=== PATIENT | female | born 1965 | race Caucasian/White ===

== ENCOUNTER 2017-11-24 17:22 | Emergency (ER) | payer MEDICARE ==
[~2017-11-24] VITALS: Ht 170.2 cm; Wt 95.7 kg
[~2017-11-24 17:22] MED LIST: GABA-549 PO; MECL25TA9 PO; MONT10TA PO; NITR-57 PO; ONDA4TAB PO; OXYC-865 PO; PARO-243 PO; PROM-110 PO; PROM5SYR PO; RANI-324 PO; ROPI1TAB36 PO; TOPI-23 PO; TOPI50TA92 PO
--- NOTE | 2017-11-24 18:00 | ER Report ---
History and Physical Time Seen By MD: 17:59 Hx. of Stated Complaint: pt reports pain in chest starting last night, and pain in stomach like a band across stomach, nausea and dizziness HPI/ROS CHIEF COMPLAINT: Chest pain, stomach pain, headache HISTORY OF PRESENT ILLNESS: 52-year-old female patient persists to emergency room with complaint stomach pain, chest pain and headache. Patient states that this started last night with the chest and abdominal pain. She states that today she tried drinking a soda but states that it "didn't taste right" so she thought she needed to come and be evaluated. She states that she went to urgent care, they attempted to get blood there but were unsuccessful and she was referred here to the emergency room. Patient states she does have a history of hypokalemia. Patient had improvement of her symptoms with Zofran and GI cocktail. That is according to the report I received from the urgent care. Patient was referred to emergency room as they were unable to check her labs. REVIEW OF SYSTEMS: Respiratory: No cough, no dyspnea. Cardiovascular: As noted above Gastrointestinal: As noted above Musculoskeletal: No back pain. Allergies: Coded Allergies: metronidazole (Verified Allergy, Unknown, 11/07/17) sulfamethoxazole (Verified Allergy, Unknown, 11/07/17) trimethoprim (Verified Allergy, Unknown, 11/07/17) Home Meds Active Scripts Promethazine Hcl (PROMETHAZINE HCL) 25 Mg Tablet, 25 MG PO Q8H Y for NAUSEA, # 20 TAB 0 Refills Prov:KENJI GREENBERG MD 11/07/17 Meclizine Hcl (MECLIZINE HCL) 25 Mg Tablet, 25 MG PO TID, #20 TAB Prov:ADDIS MCWILLIAMS PA-C 09/27/17 Reported Medications Topiramate (TOPIRAMATE) 25 Mg Tablet, 25 MG PO QHS 08/20/17 Topiramate (TOPIRAMATE) 50 Mg Tablet, 50 MG PO QAM 08/20/17 Gabapentin (GABAPENTIN) 300 Mg Capsule, 300 MG PO TID, CAPSULE 08/20/17 Paroxetine Hcl (PAXIL) 20 Mg Tablet, 40 MG PO QDAY, TAB 08/20/17 Ropinirole Hcl (ROPINIROLE HCL) 1 Mg Tablet, 1 MG PO QHS 08/20/17 Meclizine Hcl (MECLIZINE HCL) 25 Mg Tablet, 25 MG PO TID Y for DIZZINESS 08/20/17 Discontinued Reported Medications Ranitidine Hcl (ZANTAC) 150 Mg Tablet, 150 MG PO BID, TAB 08/20/17 Nitrofurantoin Monohyd/M-Cryst (NITROFURANTOIN MONO-MCR 100 MG) 100 Mg Capsule, 100 MG PO QDAY, CAPSULE 08/20/17 Past Medical/Surgical History Patient has a past medical history of restless leg, migraines, heart murmur, asthma, reflux, UTI, fibromyalgia, fractures, diabetes, depression, anxiety. Patient has a past surgical history cholecystectomy, hysterectomy, knee surgery , foot surgery, back surgery, wrist surgery. Reviewed Nurses Notes: Yes Hx Smoking: Yes Hx Substance Use Disorder: No Hx Alcohol Use: No Constitutional Vital Sign - Last 24 Hours 11/24/17 11/24/17 11/24/17 11/24/17 17:22 17:32 17:33 17:37 Temp 98.4 Pulse ??? 83 79 Resp 16 15 B/P (MAP) 135/80 135/80 (98) Pulse Ox 96 96 O2 Delivery Room Air 11/24/17 11/24/17 11/24/17 11/24/17 17:52 18:00 18:07 18:22 Pulse 74 72 80 Resp 11 8 24 B/P (MAP) 119/76 (90) Pulse Ox 97 96 11/24/17 11/24/17 11/24/17 11/24/17 18:30 18:37 18:52 19:07 Pulse 84 79 ??? Resp 8 21 B/P (MAP) ???/??? (1665) 11/24/17 11/24/17 11/24/17 11/24/17 19:12 19:27 19:30 19:42 Pulse 67 73 68 Resp 15 16 14 B/P (MAP) ???/??? (1665) 11/24/17 11/24/17 11/24/17 11/24/17 19:46 19:57 20:00 20:12 Pulse 66 76 Resp 14 11 B/P (MAP) 122/78 (93) 110/65 (80) 11/24/17 11/24/17 11/24/17 11/24/17 20:27 20:30 20:42 20:57 Pulse 64 66 ??? Resp 15 13 B/P (MAP) 119/64 (82) Intake and Output 11/24/17 11/24/17 11/25/17 15:00 23:00 07:00 Intake Total 400 ml Balance 400 ml Physical Exam General Appearance: The patient is alert, has no immediate need for airway protection and no current signs of toxicity. Respiratory: Chest is non tender, lungs are clear to auscultation. Cardiac: regular rate and rhythm Gastrointestinal: Abdomen is soft and diffusely tender, no masses, bowel sounds normal. Musculoskeletal: Neck: Neck is supple and non tender. Extremities have full range of motion and are non tender. Skin: No rashes or lesions. DIFFERENTIAL DIAGNOSIS: After history and physical exam differential diagnosis was considered for chest pain including but not limited to myocardial ischemia, pericarditis pulmonary embolus, chest wall pain, pleural inflammation and pulmonary infectious causes. Included differential is migraine, diverticulitis, appendicitis, gastroenteritis. Medical Decision Making Data Points Result Diagram: 11/24/17193811/24/171938 Laboratory Hematology Test 11/24/17 17:32 11/24/17 19:39 Urine Color Yellow Urine Clarity Slightly-cloudy Urine pH 5.0 pH (4.8-9.5) Urine Specific [place] 1.021 Urine Protein Negative mg/dL (NEGATIVE) Urine Glucose (UA) Negative mg/dL (NEGATIVE) Urine Ketones Negative mg/dL (NEGATIVE) Urine Blood Small (NEGATIVE) Urine Nitrite Negative (NEGATIVE) Urine Bilirubin Negative (NEGATIVE) Urine Urobilinogen Negative mg/dL (0.2-1.9) Urine Leukocyte Esterase Negative (NEGATIVE) Urine RBC <1 /HPF (0-2/HPF) Urine WBC 2 /HPF (0-5/HPF) Urine Squamous Epithelial Cells Many /LPF (</=FEW) Urine Bacteria Few /HPF (NONE-FEW) Urine Mucus Few /HPF (NONE-FEW) Red Blood Count 5.56 M/uL (4.17-5.56) Mean Corpuscular Volume 76.5 fL (80.0-96.0) Mean Corpuscular Hemoglobin 24.5 pg (26.0-33.0) Mean Corpuscular Hemoglobin Concent 32.0 g/dL (32.0-36.0) Red Cell Distribution Width 16.5 % (11.5-14.5) Mean Platelet Volume 8.5 fL (7.2-11.1) Neutrophils (%) (Auto) 58.6 % (39.4-72.5) Lymphocytes (%) (Auto) 33.1 % (17.6-49.6) Monocytes (%) (Auto) 7.1 % (4.1-12.4) Eosinophils (%) (Auto) 0.7 % (0.4-6.7) Basophils (%) (Auto) 0.5 % (0.3-1.4) Nucleated RBC Relative Count (auto) 0.0 /100WBC Neutrophils # (Auto) 3.5 K/uL (2.0-7.4) Lymphocytes # (Auto) 2.0 K/uL (1.3-3.6) Monocytes # (Auto) 0.4 K/uL (0.3-1.0) Eosinophils # (Auto) 0.0 K/uL (0.0-0.5) Basophils # (Auto) 0.0 K/uL (0.0-0.1) Nucleated RBC Absolute Count (auto) 0.00 K/uL Sodium Level 137 mmol/L (137-145) Potassium Level 3.9 mmol/L (3.5-5.0) Chloride Level 105 mmol/L (98-107) Carbon Dioxide Level 24 mmol/L (22-31) Blood Urea Nitrogen 10 mg/dl (7-18) Creatinine 0.90 mg/dl (0.52-1.04) Glomerular Filtration Rate Calc > 60.0 Random Glucose 100 mg/dl (75-110) Calcium Level 9.0 mg/dl (8.4-10.2) Total Bilirubin 0.7 mg/dl (0.2-1.3) Aspartate Amino Transf (AST/SGOT) 16 U/L (0-35) Alanine Aminotransferase (ALT/SGPT) 28 U/L (0-56) Alkaline Phosphatase 72 U/L (0-126) Troponin I < 0.012 ng/ml Total Protein 7.1 gm/dl (6.3-8.2) Albumin 3.8 g/dl (3.5-5.0) Chemistry Test 11/24/17 17:32 11/24/17 19:39 Urine Color Yellow Urine Clarity Slightly-cloudy Urine pH 5.0 pH (4.8-9.5) Urine Specific [place] 1.021 Urine Protein Negative mg/dL (NEGATIVE) Urine Glucose (UA) Negative mg/dL (NEGATIVE) Urine Ketones Negative mg/dL (NEGATIVE) Urine Blood Small (NEGATIVE) Urine Nitrite Negative (NEGATIVE) Urine Bilirubin Negative (NEGATIVE) Urine Urobilinogen Negative mg/dL (0.2-1.9) Urine Leukocyte Esterase Negative (NEGATIVE) Urine RBC <1 /HPF (0-2/HPF) Urine WBC 2 /HPF (0-5/HPF) Urine Squamous Epithelial Cells Many /LPF (</=FEW) Urine Bacteria Few /HPF (NONE-FEW) Urine Mucus Few /HPF (NONE-FEW) White Blood Count 6.1 k/uL (4.5-11.0) Red Blood Count 5.56 M/uL (4.17-5.56) Hemoglobin 13.6 g/dL (12.0-16.0) Hematocrit 42.5 % (34.0-47.0) Mean Corpuscular Volume 76.5 fL (80.0-96.0) Mean Corpuscular Hemoglobin 24.5 pg (26.0-33.0) Mean Corpuscular Hemoglobin Concent 32.0 g/dL (32.0-36.0) Red Cell Distribution Width 16.5 % (11.5-14.5) Platelet Count 165 K/uL (150-450) Mean Platelet Volume 8.5 fL (7.2-11.1) Neutrophils (%) (Auto) 58.6 % (39.4-72.5) Lymphocytes (%) (Auto) 33.1 % (17.6-49.6) Monocytes (%) (Auto) 7.1 % (4.1-12.4) Eosinophils (%) (Auto) 0.7 % (0.4-6.7) Basophils (%) (Auto) 0.5 % (0.3-1.4) Nucleated RBC Relative Count (auto) 0.0 /100WBC Neutrophils # (Auto) 3.5 K/uL (2.0-7.4) Lymphocytes # (Auto) 2.0 K/uL (1.3-3.6) Monocytes # (Auto) 0.4 K/uL (0.3-1.0) Eosinophils # (Auto) 0.0 K/uL (0.0-0.5) Basophils # (Auto) 0.0 K/uL (0.0-0.1) Nucleated RBC Absolute Count (auto) 0.00 K/uL Glomerular Filtration Rate Calc > 60.0 Calcium Level 9.0 mg/dl (8.4-10.2) Total Bilirubin 0.7 mg/dl (0.2-1.3) Aspartate Amino Transf (AST/SGOT) 16 U/L (0-35) Alanine Aminotransferase (ALT/SGPT) 28 U/L (0-56) Alkaline Phosphatase 72 U/L (0-126) Troponin I < 0.012 ng/ml Total Protein 7.1 gm/dl (6.3-8.2) Albumin 3.8 g/dl (3.5-5.0) Urinalysis Test 11/24/17 17:32 Urine Color Yellow Urine Clarity Slightly-cloudy Urine pH 5.0 pH (4.8-9.5) Urine Specific [place] 1.021 Urine Protein Negative mg/dL (NEGATIVE) Urine Glucose (UA) Negative mg/dL (NEGATIVE) Urine Ketones Negative mg/dL (NEGATIVE) Urine Blood Small (NEGATIVE) Urine Nitrite Negative (NEGATIVE) Urine Bilirubin Negative (NEGATIVE) Urine Urobilinogen Negative mg/dL (0.2-1.9) Urine Leukocyte Esterase Negative (NEGATIVE) Urine RBC <1 /HPF (0-2/HPF) Urine WBC 2 /HPF (0-5/HPF) Urine Squamous Epithelial Cells Many /LPF (</=FEW) Urine Bacteria Few /HPF (NONE-FEW) Urine Mucus Few /HPF (NONE-FEW) EKG/Imaging EKG Interpretation 12 lead EKG: Rhythm: normal sinus rhythm with a ventricular rate of 75 bpm Gardner: normal QRS: normal ST segments: normal Imaging Technique: CHEST PA AND LAT HISTORY: Chest pain COMPARISON: Chest radiograph November 07, 2017 Findings: The lungs are clear. No pleural effusion or pneumothorax. The cardiomediastinal silhouette is normal. Impression: 1. No acute cardiopulmonary process. Report Dictated By: Delroy Alvares DO at 11/24/2017 7:18 PM Report E-Signed By: Delroy Alvares DO at 11/24/2017 7:20 PM ED Course/Re-evaluation ED Course Patient was admitted to exam room, history of physical or obtained. Differential diagnoses were considered. On examination lungs are clear, heart is regular, abdomen was soft but a few slightly tender. A CBC, CMP, EKG, chest x -ray, troponin, urinalysis were obtained. The lab work was unremarkable, patient has a history of hypokalemia. Her potassium today was 3.9. Urinalysis was also negative. Chest x-ray showed no acute findings. Troponin was negative. I discussed the findings with the patient. Patient received 700 cc of fluid. Patient states that she did have improvement at the urgent care with GI cocktail and Zofran. We will go ahead and discharge patient home with Zofran as well as having her increase her Nexium twice daily. Patient was given a dose of Protonix here in the emergency room. I believe the cause of her discomfort is actually gastritis. Discusses patient who verbalized understanding and agreement Decision to Disposition Date: Nov 24, 2017 Decision to Disposition Time: 20:38 Depart Departure Latest Vital Signs Vital Signs Date Time Temp Pulse Resp B/P (MAP) Pulse Ox O2 Delivery O2 Flow Rate FiO2 11/24/17 20:57 ??? 11/24/17 20:42 13 11/24/17 20:30 119/64 (82) 11/24/17 18:07 96 11/24/17 17:32 98.4 Room Air Impression: Primary Impression: Chest pain Additional Impression: Gastritis Condition: Improved Disposition: HOME OR SELF-CARE Referrals: FAVIOLA APPIAH (PCP) New Scripts Ondansetron (ZOFRAN ODT) 4 Mg Tab.rapdis 4 MG PO Q6H Y for NAUSEA/VOMITING, #20 TAB.TIERRA Prov: HIGINIO COBB 11/24/17 Patient Instructions: Gastritis (ED) Additional Instructions: Increase fluid intake. Clear liquid diet for the next 24-48 hours. After that you may advance diet as tolerated starting with complex carbohydrates ; rice, bread or pasta. Follow up with your primary care provider in the next week. Return to the ER if condition worsens. Please increase your Nexium to twice a day for the next 4-5 days. Problem Qualifiers Primary Impression: Chest pain Chest pain type: other chest pain Qualified Codes: R07.89 - Other chest pain Additional Impression: Gastritis Gastritis type: unspecified gastritis Chronicity: acute Gastritis bleeding : without bleeding Qualified Codes: K29.00 - Acute gastritis without bleeding HIGINIO COBB Nov 24, 2017 18:00
[2017-11-24] MEDS ORDERED: ASPIRIN 81 MG CHEW PO ONE (18:10)
[2017-11-24] MEDS ORDERED: NS(*) 0.9% 1000 ML BAG 1,000 ML IV ONE (18:10)
--- NOTE | 2017-11-24 19:18 | EKG ---
FACILITY: PATIENT NAME: MAHESH QUISPE : [id number] MR: [id number] V: [id number] EXAM DATE: ORDERING PHYSICIAN: HIGINIO COBB TECHNOLOGIST: FRANNY Crowder Reason : CP Blood Pressure : / mmHG Vent. Rate : 075 BPM Atrial Rate : 075 BPM P-R Int : 128 ms QRS Dur : 086 ms QT Int : 404 ms P-R-T Axes : 042 043 046 degrees QTc Int : 451 ms Normal sinus rhythm Normal ECG Relatively unchanged from previous Confirmed by LANDY HOUSER ([id number]) on 11/25/2017 2:00:53 AM Referred By: FOX Confirmed By:LANDY HOUSER
--- NOTE | 2017-11-24 19:24 | RADIOLOGY IMAGING REPORT ---
FACILITY: [facility] PATIENT NAME: Francheska Anderson : 1965 MR: [id number] V: [id number] EXAM DATE: ORDERING PHYSICIAN: HIGINIO COBB TECHNOLOGIST: Location[place] [facility] [place] Patient: Francheska Anderson : 1965 Visit/Account:[id number] Date of Sevice: 11/24/2017 Technique: CHEST PA AND LAT HISTORY: Chest pain COMPARISON: Chest radiograph November 07, 2017 Findings: The lungs are clear. No pleural effusion or pneumothorax. The cardiomediastinal silhouett e is normal. Impression: 1. No acute cardiopulmonary process. Report Dictated By: Delroy Alvares DO at 11/24/2017 7:18 PM Report E-Signed By: Delroy Alvares DO at 11/24/2017 7:20 PM WSN:[id number]
[2017-11-24 19:48] LABS: PLATELET COUNT, AUTOMATED 165 K/uL (150-450)
[2017-11-24 20:30] VITALS: BP 119/64
[2017-11-24] MEDS ORDERED: ONDANSETRON 4 MG ODT TH SL ONE (20:40)
[2017-11-24] MEDS ORDERED: PANTOPRAZOLE SOD 40 MG TABEC PO ONE (20:40)
[2017-11-24] MEDS ORDERED: ONDA4TAB PO (22:18)
== END 2017-11-24 21:00 | disposition home or self-care (01) ==
LOC: ER 17:50
DX: K29.00 Acute gastritis without bleeding (principal); R07.89 Other chest pain
CPT/HCPCS: 71046; 81001; 84484; 85025; 93005; 96360; 96361; 99284; A9270; J7030; Q0162; 82040; 82247; 82310; 82374; 82435; 82565; 82947; 84075; 84132; 84155; 84295; 84450; 84460; 84520; S0119

== ENCOUNTER → 2017-12-09 | Outpatient (CLI) | payer MEDICARE ==
[~2017-12-09] MED LIST changes: +BARIUM SULFATE 176 GM BTL PO ONE; +BARIUM SULFATE 340 GM POWD ONE
--- NOTE | 2017-12-09 16:59 | RADIOLOGY IMAGING REPORT ---
FACILITY: [facility] PATIENT NAME: Francheska Anderson : 1965 MR: [id number] V: [id number] EXAM DATE: ORDERING PHYSICIAN: LISA BRADFORD TECHNOLOGIST: Location: [facility] - [place] Patient: Francheska Anderson : 1965 Visit/Account:[id number] Date of Sevice: 12/09/2017 Exam type: ESOPHAGRAM History: dysphagia, possible history of zenkers Comparison: None. Findings: Double contrast esophagram was performed with thick and thin barium. There is a Zenker's diverticulu m in the cervical esophagus measuring approximately 4 x 7 mm. There is a small hiatal hernia present with a large amount of gastroesophageal reflux. No significant narrowing was identified in the dist al esophagus no mucosal erosions were seen the fluoroscopy dose area product was 139.18 micro-Aguilar pe r meter squared IMPRESSION: 1. A Zenker's diverticulum Small hiatal hernia with a large amount of gastroesophageal reflux although no significant esophageal narrowing or mucosal erosion Report Dictated By: Genna [place] MD at 12/09/2017 4:50 PM Report E-Signed By: Genna [place] MD at 12/09/2017 4:53 PM WSN:[email or web address] [id number]
== END ==
LOC: RAD 01:18
PROVIDERS: ATTEND Otolaryngology
DX: K22.5 Diverticulum of esophagus, acquired (principal); K44.9 Diaphragmatic hernia without obstruction or gangrene; K21.9 Gastro-esophageal reflux disease without esophagitis
CPT/HCPCS: 74220

== ENCOUNTER → 2017-12-09 | Outpatient (CLI) | payer MEDICARE ==
[~2017-12-09] MED LIST changes: -BARIUM SULFATE 176 GM BTL PO ONE; -BARIUM SULFATE 340 GM POWD ONE
--- NOTE | 2017-12-10 09:54 | RADIOLOGY IMAGING REPORT ---
FACILITY: [facility] PATIENT NAME: MAHESH QUISPE : [id number] MR: [id number] V: [id number] EXAM DATE: ORDERING PHYSICIAN: NATALYA FOWLER TECHNOLOGIST: Avis Ferreira EXAMINATION:TWO-DIMENSIONAL ECHOCARDIOGRAPH REASON:SHORTNESS OF BREATH WITH EXERTION AND HEART MURMUR. 2D Measurements (normal values in centimeters) LV endLV endRV endVent.LV PostAorticLeftPercent DiastolicSystolicDiastolicSeptumWallRootAtriumShortening (3.5-5.7)(0.9-2.6)(0.6-1.1)(0.6-1.1)(2.0-3.7)(1.9-4.0)(25-35%) [id number]% STROKE VOLUME: 52 mL ESTIMATED EJECTION FRACTION:56% PARASTERNAL LONG AXIS: Overall left ventricular function and chamber sizes all appear to be normal. Aortic valve and mitral valve both appear to open and close normally. No wall motion abnormalities are noted. Color examination of the valves in this view was unremarkable. The right ventricle appears to be somewhat decreased in function. The TAPSE was measured at 1.2 indicating moderate decrease in right ventricular function. PARASTERNAL SHORT AXIS: Pulmonic valve is well seen. There is a mild amount of pulmonic insufficiency. Trileaflet aortic valve with no abnormalities noted. Trace of tricuspid insufficiency is noted. Left ventricular function appears to be normal. No specific wall motion abnormalities were noted. APICAL FOUR AND TWO CHAMBER: Normal chamber sizes. Prominent moderator bands noted in the right ventricle. Aortic valve area and mitral valve area both measure within normal range at 2.6 and 3.3 cm2 respectively. Left atrial and right atrial volumes measure within normal range at 15 and 10 mL/m2. Tricuspid regurgitation V-max is measured at 1.78 m/sec. SUBCOSTAL VIEW: It was difficult but no pericardial effusion was noted. Doppler examination of the mitral valve in diastole does reveal E to A wave reversal. OVERALL IMPRESSION: 1. Normal left ventricular ejection fraction of 56% with a grade 1/4 decrease in diastolic function. 2. There are normal chamber sizes. 3. No wall motion abnormalities are noted. 4. Aortic valve is trileaflet in configuration and appears to open normally. No stenosis is noted. 5. There is a trace amount of tricuspid insufficiency with estimated right ventricular systolic pressure within normal range at 16 mmHg. 6. A mild amount of pulmonic insufficiency. 7. Possible decrease in right ventricular function, moderate, with the TAPSE measuring 1.2 indicating moderate decrease in right ventricular function. Dictated by: Wilberto Krause M.D. on 12/09/2017 at 21:19 Transcribed by: FRANKIE on 12/09/2017 at 22:34 Approved by: Wilberto Krause M.D. on 12/10/2017 at 9:53 [facility]
== END ==
LOC: US 12-03 00:33
PROVIDERS: ATTEND Internal Medicine Cardiovascular Disease
DX: I07.1 Rheumatic tricuspid insufficiency (principal); I37.1 Nonrheumatic pulmonary valve insufficiency; I50.30 Unspecified diastolic (congestive) heart failure
CPT/HCPCS: 93306

== ENCOUNTER 2018-01-10 01:10 | Emergency (ER) | payer MEDICARE, MEDICAID ==
[~2018-01-10] VITALS: Ht 170.2 cm; Wt 94.8 kg
[~2018-01-10 01:10] MED LIST changes: -FLUC150T40 PO
[2018-01-10] MEDS ORDERED: NS(*) 0.9% 1000 ML BAG 1,000 ML IV ONE (01:20)
[2018-01-10] MEDS ORDERED: ONDANSETRON 4 MG/2 ML VIAL IVP ONE ×2 (01:20→03:50)
--- NOTE | 2018-01-10 01:21 | ER Report ---
History and Physical Time Seen By MD: 01:15 Hx. of Stated Complaint: PT REPORTS NAUSEA, VOMITING AND DIZZINESS TONIGHT. VS SIGNS ABSOLUTELY NORMAL. HPI/ROS CHIEF COMPLAINT: Nausea, vomiting, dizziness, syncope HISTORY OF PRESENT ILLNESS: This is a 53-year-old female. She has had ongoing problems with dizziness and syncope for some time and has a workup that is ongoing. Tonight she was having some nausea, vomiting, and felt dizzy again. She ended up having a syncopal episode. She passed out. She has a headache, denies vision changes. No neck or back pain. No injury to the extremities. She did have recent wrist surgery on her right wrist for removal of hardware, and that seems to be doing well. She denies any fevers or chills. No chest pains. No shortness of breath. No abdominal pain. Allergies: Coded Allergies: metronidazole (Verified Allergy, Unknown, 01/10/18) sulfamethoxazole (Verified Allergy, Unknown, 01/10/18) trimethoprim (Verified Allergy, Unknown, 01/10/18) Home Meds Active Scripts Promethazine Hcl (PROMETHAZINE HCL) 25 Mg Tablet, 25 MG PO Q8H Y for NAUSEA/ VOMITING, #20 TAB 0 Refills Prov:CHRIS MERRITT MD 01/10/18 Ondansetron (ZOFRAN ODT) 4 Mg Tab.rapdis, 4 MG PO Q6H Y for NAUSEA/VOMITING, # 20 TAB.TIERRA Prov:HIGINIO COBBP 11/24/17 Promethazine Hcl (PROMETHAZINE HCL) 25 Mg Tablet, 25 MG PO Q8H Y for NAUSEA, # 20 TAB 0 Refills Prov:KENJI GREENBERG MD 11/07/17 Reported Medications Topiramate (TOPIRAMATE) 25 Mg Tablet, 25 MG PO QHS 08/20/17 Topiramate (TOPIRAMATE) 50 Mg Tablet, 50 MG PO QAM 08/20/17 Gabapentin (GABAPENTIN) 300 Mg Capsule, 300 MG PO TID, CAPSULE 08/20/17 Paroxetine Hcl (PAXIL) 20 Mg Tablet, 40 MG PO QDAY, TAB 08/20/17 Ropinirole Hcl (ROPINIROLE HCL) 1 Mg Tablet, 1 MG PO QHS 08/20/17 Meclizine Hcl (MECLIZINE HCL) 25 Mg Tablet, 25 MG PO TID Y for DIZZINESS 08/20/17 Discontinued Scripts Meclizine Hcl (MECLIZINE HCL) 25 Mg Tablet, 25 MG PO TID, #20 TAB Prov:POPPYADDIS Whitehead PA-C 09/27/17 Reviewed Nurses Notes: Yes Hx Smoking: Yes Smoking Status: Never Smoker Hx Substance Use Disorder: No Hx Alcohol Use: No Constitutional Vital Sign - Last 24 Hours 01/10/18 01/10/18 01/10/18 01/10/18 01:03 01:15 01:30 01:45 Temp 98.0 Pulse 81 77 74 75 Resp 14 B/P (MAP) 98/78 (85) Pulse Ox 93 92 90 O2 Delivery Room Air 01/10/18 01/10/18 01/10/18 01/10/18 02:00 02:01 02:15 02:45 Pulse ??? 72 B/P (MAP) 114/68 (83) Pulse Ox 92 92 93 01/10/18 01/10/18 01/10/18 01/10/18 03:15 03:30 03:45 04:00 Pulse 69 68 75 B/P (MAP) 108/75 (86) Pulse Ox 92 92 93 01/10/18 04:32 Pulse 86 Resp 14 B/P (MAP) 118/80 (93) Pulse Ox 92 O2 Delivery Room Air Physical Exam General Appearance: The patient is alert. No acute distress. Eyes: Pupils are equal, round. Reactive to light. No pallor, injection or icterus. Extraocular movements are intact. No nystagmus. ENT: Mucous membranes are moist. Normal oral mucosa. Posterior oropharynx is normal. Normal tympanic membranes and canals. Neck: Supple and non tender. No lymphadenopathy. Respiratory: Breathing easily and unlabored. Lungs are clear to auscultation. Cardiovascular: Regular rate and rhythm. No murmurs, gallops or rubs. Normal capillary refill. Gastrointestinal: Abdomen is soft and non tender. Nondistended. Normal active bowel sounds. Neurological: Alert and oriented x3. No focal neurologic deficits in the extremities. Skin: Warm and dry. No rashes. Musculoskeletal: Extremities are nontender. Full range of motion. No tenderness in palpation of the cervical, thoracic and lumbar spine. DIFFERENTIAL DIAGNOSIS: After history and physical exam, differential diagnosis was considered for syncope including but not limited to vasovagal syncope, arrhythmia, dehydration, and blood loss. Medical Decision Making Data Points Result Diagram: 01/10/18 0135 01/10/18 0135 Laboratory Hematology Test 01/10/18 01:35 01/10/18 03:00 Red Blood Count 5.42 M/uL (4.17-5.56) Mean Corpuscular Volume 75.3 fL (80.0-96.0) Mean Corpuscular Hemoglobin 24.2 pg (26.0-33.0) Mean Corpuscular Hemoglobin Concent 32.1 g/dL (32.0-36.0) Red Cell Distribution Width 15.9 % (11.5-14.5) Mean Platelet Volume 8.2 fL (7.2-11.1) Neutrophils (%) (Auto) 65.5 % (39.4-72.5) Lymphocytes (%) (Auto) 24.5 % (17.6-49.6) Monocytes (%) (Auto) 7.1 % (4.1-12.4) Eosinophils (%) (Auto) 2.2 % (0.4-6.7) Basophils (%) (Auto) 0.7 % (0.3-1.4) Nucleated RBC Relative Count (auto) 0.1 /100WBC Neutrophils # (Auto) 5.6 K/uL (2.0-7.4) Lymphocytes # (Auto) 2.1 K/uL (1.3-3.6) Monocytes # (Auto) 0.6 K/uL (0.3-1.0) Eosinophils # (Auto) 0.2 K/uL (0.0-0.5) Basophils # (Auto) 0.1 K/uL (0.0-0.1) Nucleated RBC Absolute Count (auto) 0.01 K/uL Peripheral Blood Smear No Y/N Sodium Level 138 mmol/L (137-145) Potassium Level 3.4 mmol/L (3.5-5.0) Chloride Level 105 mmol/L (98-107) Carbon Dioxide Level 22 mmol/L (22-31) Blood Urea Nitrogen 12 mg/dl (7-18) Creatinine 0.90 mg/dl (0.52-1.04) Glomerular Filtration Rate Calc > 60.0 Random Glucose 106 mg/dl (75-110) Calcium Level 8.8 mg/dl (8.4-10.2) Total Bilirubin 0.4 mg/dl (0.2-1.3) Aspartate Amino Transf (AST/SGOT) 14 U/L (0-35) Alanine Aminotransferase (ALT/SGPT) 19 U/L (0-56) Alkaline Phosphatase 64 U/L (0-126) Troponin I < 0.012 ng/ml Total Protein 6.8 gm/dl (6.3-8.2) Albumin 3.5 g/dl (3.5-5.0) Urine Color Yellow Urine Clarity Clear Urine pH 5.0 pH (4.8-9.5) Urine Specific Breaks 1.010 Urine Protein Negative mg/dL (NEGATIVE) Urine Glucose (UA) Negative mg/dL (NEGATIVE) Urine Ketones Negative mg/dL (NEGATIVE) Urine Blood Negative (NEGATIVE) Urine Nitrite Negative (NEGATIVE) Urine Bilirubin Negative (NEGATIVE) Urine Urobilinogen Negative mg/dL (0.2-1.9) Urine Leukocyte Esterase Negative (NEGATIVE) Urine RBC 1 /HPF (0-2/HPF) Urine WBC 1 /HPF (0-5/HPF) Urine Squamous Epithelial Cells Many /LPF (</=FEW) Urine Bacteria Few /HPF (NONE-FEW) Urine Mucus Few /HPF (NONE-FEW) Chemistry Test 01/10/18 01:35 01/10/18 03:00 White Blood Count 8.5 k/uL (4.5-11.0) Red Blood Count 5.42 M/uL (4.17-5.56) Hemoglobin 13.1 g/dL (12.0-16.0) Hematocrit 40.8 % (34.0-47.0) Mean Corpuscular Volume 75.3 fL (80.0-96.0) Mean Corpuscular Hemoglobin 24.2 pg (26.0-33.0) Mean Corpuscular Hemoglobin Concent 32.1 g/dL (32.0-36.0) Red Cell Distribution Width 15.9 % (11.5-14.5) Platelet Count 238 K/uL (150-450) Mean Platelet Volume 8.2 fL (7.2-11.1) Neutrophils (%) (Auto) 65.5 % (39.4-72.5) Lymphocytes (%) (Auto) 24.5 % (17.6-49.6) Monocytes (%) (Auto) 7.1 % (4.1-12.4) Eosinophils (%) (Auto) 2.2 % (0.4-6.7) Basophils (%) (Auto) 0.7 % (0.3-1.4) Nucleated RBC Relative Count (auto) 0.1 /100WBC Neutrophils # (Auto) 5.6 K/uL (2.0-7.4) Lymphocytes # (Auto) 2.1 K/uL (1.3-3.6) Monocytes # (Auto) 0.6 K/uL (0.3-1.0) Eosinophils # (Auto) 0.2 K/uL (0.0-0.5) Basophils # (Auto) 0.1 K/uL (0.0-0.1) Nucleated RBC Absolute Count (auto) 0.01 K/uL Peripheral Blood Smear No Y/N Glomerular Filtration Rate Calc > 60.0 Calcium Level 8.8 mg/dl (8.4-10.2) Total Bilirubin 0.4 mg/dl (0.2-1.3) Aspartate Amino Transf (AST/SGOT) 14 U/L (0-35) Alanine Aminotransferase (ALT/SGPT) 19 U/L (0-56) Alkaline Phosphatase 64 U/L (0-126) Troponin I < 0.012 ng/ml Total Protein 6.8 gm/dl (6.3-8.2) Albumin 3.5 g/dl (3.5-5.0) Urine Color Yellow Urine Clarity Clear Urine pH 5.0 pH (4.8-9.5) Urine Specific Breaks 1.010 Urine Protein Negative mg/dL (NEGATIVE) Urine Glucose (UA) Negative mg/dL (NEGATIVE) Urine Ketones Negative mg/dL (NEGATIVE) Urine Blood Negative (NEGATIVE) Urine Nitrite Negative (NEGATIVE) Urine Bilirubin Negative (NEGATIVE) Urine Urobilinogen Negative mg/dL (0.2-1.9) Urine Leukocyte Esterase Negative (NEGATIVE) Urine RBC 1 /HPF (0-2/HPF) Urine WBC 1 /HPF (0-5/HPF) Urine Squamous Epithelial Cells Many /LPF (</=FEW) Urine Bacteria Few /HPF (NONE-FEW) Urine Mucus Few /HPF (NONE-FEW) Urinalysis Test 01/10/18 03:00 Urine Color Yellow Urine Clarity Clear Urine pH 5.0 pH (4.8-9.5) Urine Specific Breaks 1.010 Urine Protein Negative mg/dL (NEGATIVE) Urine Glucose (UA) Negative mg/dL (NEGATIVE) Urine Ketones Negative mg/dL (NEGATIVE) Urine Blood Negative (NEGATIVE) Urine Nitrite Negative (NEGATIVE) Urine Bilirubin Negative (NEGATIVE) Urine Urobilinogen Negative mg/dL (0.2-1.9) Urine Leukocyte Esterase Negative (NEGATIVE) Urine RBC 1 /HPF (0-2/HPF) Urine WBC 1 /HPF (0-5/HPF) Urine Squamous Epithelial Cells Many /LPF (</=FEW) Urine Bacteria Few /HPF (NONE-FEW) Urine Mucus Few /HPF (NONE-FEW) EKG/Imaging EKG Interpretation 12 lead EKG: Rhythm: normal sinus rhythm, rate 71 Riley: normal QRS: Prolonged QT ST segments: Nonspecific T-wave changes Imaging HEAD CT: Indication: Syncope. Technique: Contiguous axial sections were obtained from the base to the vertex without contrast enhancement. One of the following dose optimization techniques was utilized in the performance of this exam: Automated exposure control; adjustment of the mA and/ or kV according to the patient's size; or use of an iterative reconstruction technique. Specific details can be referenced in the facility's radiology CT exam operational policy. Comparison: 11/07/2017 Findings: There is no evidence of intra-axial or extra-axial hemorrhage. There is chronic cortical atrophy. No focal areas of decreased or increased attenuation are identified. There is no evidence of mass, edema, or shift of the midline structures. The size, shape, and configuration of the ventricular system are normal. The skeletal structures are intact and unremarkable. The visualized paranasal sinuses and mastoid air cells are clear. Impression: Chronic cortical atrophy. No acute interval change. Report Dictated By: Osmany Peter MD at 01/10/2018 2:40 AM PORTABLE CHEST: Indication: Syncope. Technique: A single frontal film was obtained. Comparison: 11/24/2017 Skeletal and soft tissue structures: Intact and unremarkable. Heart and mediastinum: Within normal limits. Lung garland: Well-expanded and clear. Pleural spaces: Unremarkable. Impression: No acute process or significant change. Report Dictated By: Osmany Peter MD at 01/10/2018 2:32 AM ED Course/Re-evaluation Clinical Indication for ER IV: IV Access ED Course Imaging negative. EKG unremarkable. Labs also unremarkable. Gave Zofran for her nausea 2 doses. She is feeling better. She will continue her workup for her dizziness and syncopal episodes with her specialist and primary care doctor. Decision to Disposition Date: Jan 10, 2018 Decision to Disposition Time: 04:07 Depart Departure Latest Vital Signs Vital Signs Date Time Temp Pulse Resp B/P (MAP) Pulse Ox O2 Delivery O2 Flow Rate FiO2 01/10/18 04:32 86 14 118/80 (93) 92 Room Air 01/10/18 01:03 98.0 Impression: Primary Impression: Syncope Additional Impression: Nausea & vomiting Condition: Improved Disposition: HOME OR SELF-CARE Referrals: FAVIOLA APPIAH (PCP) New Scripts Promethazine Hcl (PROMETHAZINE HCL) 25 Mg Tablet 25 MG PO Q8H Y for NAUSEA/VOMITING, #20 TAB 0 Refills Prov: CHRIS MERRITT MD 01/10/18 Patient Instructions: Acute Nausea and Vomiting (ED), Syncope (ED) Additional Instructions: Follow-up with your primary care provider this week. Keep your appointment for the specialist for your dizziness. Phenergan 25mg every 8 hours as needed for nausea. Problem Qualifiers Primary Impression: Syncope Syncope type: unspecified Qualified Codes: R55 - Syncope and collapse Additional Impression: Nausea & vomiting Vomiting type: unspecified Vomiting Intractability: non-intractable Qualified Codes: R11.2 - Nausea with vomiting, unspecified CHRIS MERRITT MD Jan 10, 2018 01:21
[2018-01-10 01:47] LABS: PLATELET COUNT, AUTOMATED 238 K/uL (150-450)
--- NOTE | 2018-01-10 02:39 | RADIOLOGY IMAGING REPORT ---
FACILITY: [facility] [place] PATIENT NAME: Francheska Anderson : 1965 MR: [id number] V: [id number] EXAM DATE: ORDERING PHYSICIAN: CHRIS MERRITT TECHNOLOGIST: Location: Patient: Francheska Anderson : 1965 Visit/Account:[id number] Date of Sevice: 01/10/2018 PORTABLE CHEST: Indication: Syncope. Technique: A single frontal film was obtained. Comparison: 11/24/2017 Skeletal and soft tissue structures: Intact and unremarkable. Heart and mediastinum: Within normal limits. Lung garland: Well-expanded and clear. Pleural spaces: Unremarkable. Impression: No acute process or significant change. Report Dictated By: Osmany Peter MD at 01/10/2018 2:32 AM Report E-Signed By: Osmany Peter MD at 01/10/2018 2:35 AM WSN:[id number]
--- NOTE | 2018-01-10 02:49 | RADIOLOGY IMAGING REPORT ---
FACILITY: [facility] PATIENT NAME: Francheska Anderson : 1965 MR: [id number] V: [id number] EXAM DATE: ORDERING PHYSICIAN: CHRIS MERRITT TECHNOLOGIST: Location: [facility] Patient: Francheska Anderson : 1965 Visit/Account:[id number] Date of Sevice: 01/10/[address]: Indication: Syncope. Technique: Contiguous axial sections were obtained from the base to the vertex without contrast enhan cement. One of the following dose optimization techniques was utilized in the performance of this exam: Autom ated exposure control; adjustment of the mA and/or kV according to the patient's size; or use of an i terative reconstruction technique. Specific details can be referenced in the facility's radiology CT exam operational policy. Comparison: 11/07/2017 Findings: There is no evidence of intra-axial or extra-axial hemorrhage. There is chronic cortical at rophy. No focal areas of decreased or increased attenuation are identified. There is no evidence of m ass, edema, or shift of the midline structures. The size, shape, and configuration of the ventricular system are normal. The skeletal structures are intact and unremarkable. The visualized paranasal sin uses and mastoid air cells are clear. Impression: Chronic cortical atrophy. No acute interval change. Report Dictated By: Osmany Peter MD at 01/10/2018 2:40 AM Report E-Signed By: Osmany Peter MD at 01/10/2018 2:45 AM WSN:[id number]
--- NOTE | 2018-01-10 02:51 | EKG ---
FACILITY: [facility] [place] PATIENT NAME: MAHESH QUISPE : [id number] MR: [id number] V: [id number] EXAM DATE: ORDERING PHYSICIAN: CHRIS MERRITT TECHNOLOGIST: Test Reason : Blood Pressure : / mmHG Vent. Rate : 071 BPM Atrial Rate : 071 BPM P-R Int : 126 ms QRS Dur : 088 ms QT Int : 432 ms P-R-T Axes : 039 030 030 degrees QTc Int : 469 ms Normal sinus rhythm Nonspecific T wave abnormality Prolonged QT Abnormal ECG When compared with ECG of 24-NOV-2017 17:38, Nonspecific T wave abnormality now evident in Inferior leads Confirmed by DEE DEE WANG ([id number]) on 01/10/2018 6:48:25 AM Referred By: Confirmed By:DEE DEE WANG
[2018-01-10] MEDS ORDERED: PROM-110 PO (04:09)
[2018-01-10] MEDS ORDERED: PROMETHAZINE HCL 25 MG TAB TH 2 TAB/BOTTLE PO ONE (04:10)
[2018-01-10 04:32] VITALS: BP 118/80
== END 2018-01-10 04:30 | disposition home or self-care (01) ==
LOC: ER 01:12
DX: R55 Syncope and collapse (principal); R11.2 Nausea with vomiting, unspecified; R94.31 Abnormal electrocardiogram [ECG] [EKG]
CPT/HCPCS: 70450; 71045; 81001; 84484; 85025; 93005; 96361; 96374; 96376; 99284; J2405; J7030; 82040; 82247; 82310; 82374; 82435; 82565; 82947; 84075; 84132; 84155; 84295; 84450; 84460; 84520

== ENCOUNTER → 2018-01-10 | Outpatient (CLI) | payer MEDICARE, MEDICAID ==
[~2018-01-10] MED LIST changes: +FLUC150T40 PO
== END ==
LOC: AMB 00:42
PROVIDERS: ATTEND Nurse Practitioner
DX: R42 Dizziness and giddiness (principal); R11.0 Nausea; R55 Syncope and collapse; M54.2 Cervicalgia
CPT/HCPCS: A0425; A0427

== ENCOUNTER 2018-01-20 14:46 | Emergency (ER) | payer MEDICARE, MEDICAID ==
[2018-01-20] MEDS ORDERED: MONT10TA PO (15:05)
--- NOTE | 2018-01-20 15:17 | ER Report ---
History and Physical Time Seen By MD: 16:50 Hx. of Stated Complaint: PATIENT REPORTS THAT "HER KIDNEYS ARE ACTING UP". SHE REPORTS BEING SEEN AT URGENT CARE RECENTLY AND BEING DIAGNOSED WITH KIDNEY STONES HPI/ROS CHIEF COMPLAINT: Left back pain, vaginal pain HISTORY OF PRESENT ILLNESS: Patient is a 53-year-old female who presents to the ED with complaint of left back pain and some mild vaginal pain for the past 2 weeks. He states that she has had some white vaginal discharge and has a history of [place] infections in the past. She was concerned with this. She states that she went to urgent care 2 weeks ago and was told that she might have kidney stones. She states that she did not have any imaging completed but did have a urinalysis that showed some blood was told that she did not have an infection. She states that she was not prescribed any medication for this. She states that she did have a fall about a week and a half ago but did not think that she had a back injury from this. She denies any bruising or swelling of her back. She denies any hematuria or dysuria. Denies any vaginal bleeding. REVIEW OF SYSTEMS: Constitutional: No fever, no chills. Eyes: No discharge. ENT: No sore throat. Cardiovascular: No chest pain, no palpitations. Respiratory: No cough, no shortness of breath. Gastrointestinal: No abdominal pain, no vomiting. Genitourinary: See history of present illness. Musculoskeletal: See history of present illness. Skin: No rashes. Neurological: No headache. Allergies: Coded Allergies: metronidazole (Verified Allergy, Unknown, 01/10/18) sulfamethoxazole (Verified Allergy, Unknown, 01/10/18) trimethoprim (Verified Allergy, Unknown, 01/10/18) Home Meds Active Scripts Promethazine Hcl (PROMETHAZINE HCL) 25 Mg Tablet, 25 MG PO Q8H Y for NAUSEA/ VOMITING, #20 TAB 0 Refills Prov:CHRIS MERRITT MD 01/10/18 Ondansetron (ZOFRAN ODT) 4 Mg Tab.rapdis, 4 MG PO Q6H Y for NAUSEA/VOMITING, # 20 TAB.TIERRA Prov:HIGINIO COBB 11/24/17 Promethazine Hcl (PROMETHAZINE HCL) 25 Mg Tablet, 25 MG PO Q8H Y for NAUSEA, # 20 TAB 0 Refills Prov:KENJI GREENBERG MD 11/07/17 Reported Medications Montelukast Sodium (SINGULAIR) 10 Mg Tablet, 1 TAB PO QDAY, TAB 01/20/18 Topiramate (TOPIRAMATE) 25 Mg Tablet, 25 MG PO QHS 08/20/17 Topiramate (TOPIRAMATE) 50 Mg Tablet, 50 MG PO QAM 08/20/17 Gabapentin (GABAPENTIN) 300 Mg Capsule, 300 MG PO TID, CAPSULE 08/20/17 Paroxetine Hcl (PAXIL) 20 Mg Tablet, 40 MG PO QDAY, TAB 08/20/17 Ropinirole Hcl (ROPINIROLE HCL) 1 Mg Tablet, 1 MG PO QHS 08/20/17 Meclizine Hcl (MECLIZINE HCL) 25 Mg Tablet, 25 MG PO TID Y for DIZZINESS 08/20/17 Reviewed Nurses Notes: Yes Old Medical Records Reviewed: Yes Hx Smoking: Yes Smoking Status: Never Smoker Hx Substance Use Disorder: No Hx Alcohol Use: No Constitutional Vital Sign - Last 24 Hours 01/20/18 01/20/18 01/20/18 01/20/18 14:49 14:56 15:00 15:16 Temp 97.8 Pulse 91 84 Resp 20 B/P (MAP) 92/56 92/56 (68) 121/68 (85) Pulse Ox 96 94 O2 Delivery Room Air Physical Exam General Appearance: The patient is alert, has no immediate need for airway protection and no signs of toxicity. Patient appears to be no acute distress. Eyes: Pupils equal and round no pallor or injection. ENT, Mouth: Mucous membranes are moist. Respiratory: There are no retractions, lungs are clear to auscultation. Cardiovascular: Regular rate and rhythm. Gastrointestinal: Abdomen is soft and non tender, no masses, bowel sounds normal. Skin: Warm and dry, no rashes. Musculoskeletal: There is left paravertebral lumbar tenderness with palpation. Full range of motion with some mild pain. Extremities are nontender, nonswollen and have full range of motion. DIFFERENTIAL DIAGNOSIS: After history and physical exam differential diagnosis was considered for back pain including but not limited to muscular pain, herniated disc, spine fracture, intra-abdominal causes and urinary tract infection. Medical Decision Making Data Points Result Diagram: 01/20/18 1516 01/20/18 1516 Laboratory Hematology Test 01/20/18 14:52 01/20/18 15:16 Urine Color Yellow Urine Clarity Cloudy Urine pH 5.0 pH (4.8-9.5) Urine Specific [place] 1.028 Urine Protein Negative mg/dL (NEGATIVE) Urine Glucose (UA) Negative mg/dL (NEGATIVE) Urine Ketones Negative mg/dL (NEGATIVE) Urine Blood Small (NEGATIVE) Urine Nitrite Negative (NEGATIVE) Urine Bilirubin Negative (NEGATIVE) Urine Urobilinogen Negative mg/dL (0.2-1.9) Urine Leukocyte Esterase Negative (NEGATIVE) Urine RBC 2 /HPF (0-2/HPF) Urine WBC 5 /HPF (0-5/HPF) Urine Squamous Epithelial Cells Many /LPF (</=FEW) Urine Bacteria Moderate /HPF (NONE-FEW) Urine Mucus Few /HPF (NONE-FEW) Red Blood Count 5.82 M/uL (4.17-5.56) Mean Corpuscular Volume 75.9 fL (80.0-96.0) Mean Corpuscular Hemoglobin 24.2 pg (26.0-33.0) Mean Corpuscular Hemoglobin Concent 31.9 g/dL (32.0-36.0) Red Cell Distribution Width 16.2 % (11.5-14.5) Mean Platelet Volume 8.4 fL (7.2-11.1) Neutrophils (%) (Auto) 58.0 % (39.4-72.5) Lymphocytes (%) (Auto) 31.4 % (17.6-49.6) Monocytes (%) (Auto) 6.8 % (4.1-12.4) Eosinophils (%) (Auto) 3.2 % (0.4-6.7) Basophils (%) (Auto) 0.6 % (0.3-1.4) Nucleated RBC Relative Count (auto) 0.0 /100WBC Neutrophils # (Auto) 4.3 K/uL (2.0-7.4) Lymphocytes # (Auto) 2.3 K/uL (1.3-3.6) Monocytes # (Auto) 0.5 K/uL (0.3-1.0) Eosinophils # (Auto) 0.2 K/uL (0.0-0.5) Basophils # (Auto) 0.0 K/uL (0.0-0.1) Nucleated RBC Absolute Count (auto) 0.00 K/uL Peripheral Blood Smear Y/N Sodium Level 141 mmol/L (137-145) Potassium Level 3.7 mmol/L (3.5-5.0) Chloride Level 106 mmol/L (98-107) Carbon Dioxide Level 21 mmol/L (22-31) Blood Urea Nitrogen 14 mg/dl (7-18) Creatinine 0.90 mg/dl (0.52-1.04) Glomerular Filtration Rate Calc > 60.0 Random Glucose 90 mg/dl (75-110) Calcium Level 9.2 mg/dl (8.4-10.2) Total Bilirubin 0.3 mg/dl (0.2-1.3) Aspartate Amino Transf (AST/SGOT) 15 U/L (0-35) Alanine Aminotransferase (ALT/SGPT) 22 U/L (0-56) Alkaline Phosphatase 67 U/L (0-126) Total Protein 7.1 gm/dl (6.3-8.2) Albumin 3.8 g/dl (3.5-5.0) Chemistry Test 01/20/18 14:52 01/20/18 15:16 Urine Color Yellow Urine Clarity Cloudy Urine pH 5.0 pH (4.8-9.5) Urine Specific [place] 1.028 Urine Protein Negative mg/dL (NEGATIVE) Urine Glucose (UA) Negative mg/dL (NEGATIVE) Urine Ketones Negative mg/dL (NEGATIVE) Urine Blood Small (NEGATIVE) Urine Nitrite Negative (NEGATIVE) Urine Bilirubin Negative (NEGATIVE) Urine Urobilinogen Negative mg/dL (0.2-1.9) Urine Leukocyte Esterase Negative (NEGATIVE) Urine RBC 2 /HPF (0-2/HPF) Urine WBC 5 /HPF (0-5/HPF) Urine Squamous Epithelial Cells Many /LPF (</=FEW) Urine Bacteria Moderate /HPF (NONE-FEW) Urine Mucus Few /HPF (NONE-FEW) White Blood Count 7.5 k/uL (4.5-11.0) Red Blood Count 5.82 M/uL (4.17-5.56) Hemoglobin 14.1 g/dL (12.0-16.0) Hematocrit 44.2 % (34.0-47.0) Mean Corpuscular Volume 75.9 fL (80.0-96.0) Mean Corpuscular Hemoglobin 24.2 pg (26.0-33.0) Mean Corpuscular Hemoglobin Concent 31.9 g/dL (32.0-36.0) Red Cell Distribution Width 16.2 % (11.5-14.5) Platelet Count 219 K/uL (150-450) Mean Platelet Volume 8.4 fL (7.2-11.1) Neutrophils (%) (Auto) 58.0 % (39.4-72.5) Lymphocytes (%) (Auto) 31.4 % (17.6-49.6) Monocytes (%) (Auto) 6.8 % (4.1-12.4) Eosinophils (%) (Auto) 3.2 % (0.4-6.7) Basophils (%) (Auto) 0.6 % (0.3-1.4) Nucleated RBC Relative Count (auto) 0.0 /100WBC Neutrophils # (Auto) 4.3 K/uL (2.0-7.4) Lymphocytes # (Auto) 2.3 K/uL (1.3-3.6) Monocytes # (Auto) 0.5 K/uL (0.3-1.0) Eosinophils # (Auto) 0.2 K/uL (0.0-0.5) Basophils # (Auto) 0.0 K/uL (0.0-0.1) Nucleated RBC Absolute Count (auto) 0.00 K/uL Peripheral Blood Smear Y/N Glomerular Filtration Rate Calc > 60.0 Calcium Level 9.2 mg/dl (8.4-10.2) Total Bilirubin 0.3 mg/dl (0.2-1.3) Aspartate Amino Transf (AST/SGOT) 15 U/L (0-35) Alanine Aminotransferase (ALT/SGPT) 22 U/L (0-56) Alkaline Phosphatase 67 U/L (0-126) Total Protein 7.1 gm/dl (6.3-8.2) Albumin 3.8 g/dl (3.5-5.0) Urinalysis Test 01/20/18 14:52 Urine Color Yellow Urine Clarity Cloudy Urine pH 5.0 pH (4.8-9.5) Urine Specific [place] 1.028 Urine Protein Negative mg/dL (NEGATIVE) Urine Glucose (UA) Negative mg/dL (NEGATIVE) Urine Ketones Negative mg/dL (NEGATIVE) Urine Blood Small (NEGATIVE) Urine Nitrite Negative (NEGATIVE) Urine Bilirubin Negative (NEGATIVE) Urine Urobilinogen Negative mg/dL (0.2-1.9) Urine Leukocyte Esterase Negative (NEGATIVE) Urine RBC 2 /HPF (0-2/HPF) Urine WBC 5 /HPF (0-5/HPF) Urine Squamous Epithelial Cells Many /LPF (</=FEW) Urine Bacteria Moderate /HPF (NONE-FEW) Urine Mucus Few /HPF (NONE-FEW) EKG/Imaging Imaging Lumbar Spine Xrays: IMPRESSION: 1. No acute fracture. 2. Posterior spinal fusion hardware at L4-L5 as described above. Report Dictated By: Delroy Alvares DO at 01/20/2018 4:09 PM Report E-Signed By: Delroy Alvares DO at 01/20/2018 4:12 PM ED Course/Re-evaluation ED Course Will obtain labs and lumbar spine x-rays. 01/20/2018 4:27:07 pm - discussed all lab results and imaging with patient. There appears to be no acute fracture and all labs are essentially normal. Advised patient that this likely is musculoskeletal issue given the location of her pain and history. She refuses a pelvic exam at this time but given her history she likely has a yeast infection will treat this with Diflucan. Advised to follow-up with her primary care provider. Decision to Disposition Date: Jan 20, 2018 Decision to Disposition Time: 16:27 Depart Departure Latest Vital Signs Vital Signs Date Time Temp Pulse Resp B/P (MAP) Pulse Ox O2 Delivery O2 Flow Rate FiO2 01/20/18 15:16 84 94 01/20/18 15:00 121/68 (85) 01/20/18 14:49 97.8 20 Room Air Impression: Primary Impression: Lumbar back pain Additional Impression: Vaginal candidiasis Condition: Improved Disposition: HOME OR SELF-CARE Referrals: FAVIOLA APPIAH (PCP) New Scripts Fluconazole (DIFLUCAN) 150 Mg Tablet 150 MG PO QDAY, #2 TAB Take one tab today and may repeat in 48 hours if there is no improvement. Prov: ADDIS MCWILLIAMS PA-C 01/20/18 Patient Instructions: Acute Low Back Pain (ED), Vulvovaginal Candidiasis (ED) Additional Instructions: Stay well-hydrated. Follow-up with your primary care provider in 2-3 days. Rest , ice, heat. If having any worsening or concerning symptoms may return to the emergency department. Problem Qualifiers ADDIS MCWILLIAMS PA-C Jan 20, 2018 15:17
[2018-01-20 15:27] LABS: PLATELET COUNT, AUTOMATED 219 K/uL (150-450)
--- NOTE | 2018-01-20 16:16 | RADIOLOGY IMAGING REPORT ---
FACILITY: [facility] PATIENT NAME: Francheska Anderson : 1965 MR: [id number] V: [id number] EXAM DATE: ORDERING PHYSICIAN: ADDIS MCWILLIAMS TECHNOLOGIST: Location: [facility] Patient: Francheska Anderson : 1965 Visit/Account:[id number] Date of Sevice: 01/20/2018 Technique: LUMBAR SPINE 2 OR 3 VIEW HISTORY: lumbar back pain, falls Comparison studies: None FINDINGS: Posterior spinal fusion hardware is noted at L4-L5. There is 4 mm anterolisthesis of L4 on L5. The remaining vertebral body alignment is maintained. Vertebral body heights are normal. There is no acute fracture. IMPRESSION: 1. No acute fracture. 2. Posterior spinal fusion hardware at L4-L5 as described above. Report Dictated By: Delroy Alvares DO at 01/20/2018 4:09 PM Report E-Signed By: Delroy Alvares DO at 01/20/2018 4:12 PM WSN:[id number]
[2018-01-20] MEDS ORDERED: FLUC150T40 PO (16:29)
[2018-01-20 16:30] VITALS: BP 109/65
== END 2018-01-20 16:39 | disposition home or self-care (01) ==
LOC: ER 14:51
DX: M54.5 Low back pain (principal); B37.3 Candidiasis of vulva and vagina
CPT/HCPCS: 36415; 72100; 81001; 82040; 82247; 82310; 82374; 82435; 82565; 82947; 84075; 84132; 84155; 84295; 84450; 84460; 84520; 85025; 99283

== ENCOUNTER 2018-03-17 14:36 | Emergency (ER) | payer MEDICARE, MEDICAID ==
[~2018-03-17 14:36] MED LIST changes: +FLUC150T40 PO; +OMEP40CA48 PO; -RANI-324 PO; +RANI-366 PO
[2018-03-17] MEDS ORDERED: NS(*) 0.9% 1000 ML BAG 1,000 ML IV ONE (15:12)
[2018-03-17] MEDS ORDERED: ONDANSETRON 4 MG/2 ML VIAL IVP ONE (15:15)
--- NOTE | 2018-03-17 15:15 | ER Report ---
History and Physical Time Seen By MD: 14:55 Hx. of Stated Complaint: MID ABDOMINAL PAIN OVER HERNAL, SWOLLEN THROAT, DIARRHEA/CONSTIPATION/VOMITING HPI/ROS CHIEF COMPLAINT: Abdominal pain HISTORY OF PRESENT ILLNESS: 53-year-old female known history of a hiatal hernia comes to emergency department after having pain in her abdomen for approximately 1-1/2 years she states that she's been seen by her primary care diagnosed hiatal hernias GI follow-up in the next 2 weeks however was expressing discomfort so she thought she come to the ER for emergent visit. Patient states her pain is unchanged from her baseline she took episodes of emesis last night and nonbloody nonbilious no diarrhea patient is describing her pain is dull and aching across the epigastric area she also takes TPI for a known diagnosis of acid reflux and GERD patient has no chest pain shortness of breath or diarrhea REVIEW OF SYSTEMS: Respiratory: No cough, no dyspnea. Cardiovascular: No chest pain, no palpitations. Gastrointestinal: 2 episodes of emesis epigastric discomfort Musculoskeletal: No back pain. Remainder of the 14 system rev: Yes Allergies: Coded Allergies: metronidazole (Verified Allergy, Unknown, 01/10/18) sulfamethoxazole (Verified Allergy, Unknown, 01/10/18) trimethoprim (Verified Allergy, Unknown, 01/10/18) Home Meds Active Scripts Omeprazole (OMEPRAZOLE) 40 Mg Capsule.dr, 40 MG PO QDAY, #90 CAP 3 Refills Prov:LISA BRADFORD JR, MD 03/11/18 Promethazine Hcl (PROMETHAZINE HCL) 25 Mg Tablet, 25 MG PO Q8H Y for NAUSEA/ VOMITING, #20 TAB 0 Refills Prov:CHRIS MERRITT MD 01/10/18 Ondansetron (ZOFRAN ODT) 4 Mg Tab.rapdis, 4 MG PO Q6H Y for NAUSEA/VOMITING, # 20 TAB.TIERRA Prov:HIGINIO COBB 11/24/17 Promethazine Hcl (PROMETHAZINE HCL) 25 Mg Tablet, 25 MG PO Q8H Y for NAUSEA, # 20 TAB 0 Refills Prov:KENJI GREENBERG MD 11/07/17 Reported Medications Montelukast Sodium (SINGULAIR) 10 Mg Tablet, 1 TAB PO QDAY, TAB 01/20/18 Topiramate (TOPIRAMATE) 25 Mg Tablet, 25 MG PO QHS 08/20/17 Topiramate (TOPIRAMATE) 50 Mg Tablet, 50 MG PO QAM 08/20/17 Gabapentin (GABAPENTIN) 300 Mg Capsule, 300 MG PO TID, CAPSULE 08/20/17 Paroxetine Hcl (PAXIL) 20 Mg Tablet, 40 MG PO QDAY, TAB 08/20/17 Ropinirole Hcl (ROPINIROLE HCL) 1 Mg Tablet, 1 MG PO QHS 08/20/17 Meclizine Hcl (MECLIZINE HCL) 25 Mg Tablet, 25 MG PO TID Y for DIZZINESS 08/20/17 Discontinued Scripts Fluconazole (DIFLUCAN) 150 Mg Tablet, 150 MG PO QDAY, #2 TAB Take one tab today and may repeat in 48 hours if there is no improvement. Prov:ADDIS MCWILLIAMS PA-C 01/20/18 Reviewed Nurses Notes: Yes Old Medical Records Reviewed: Yes Hx Smoking: Yes Smoking Status: Never Smoker Hx Substance Use Disorder: No Hx Alcohol Use: No Constitutional Vital Sign - Last 24 Hours 03/17/18 14:59 Temp 97.5 Pulse 87 Resp 16 B/P (MAP) 131/74 Pulse Ox 93 O2 Delivery Room Air Physical Exam General Appearance: The patient is alert, has no immediate need for airway protection and no current signs of toxicity. [ ] Eyes: Pupils equal and round no injection. Respiratory: Chest is non tender, lungs are clear to auscultation. Cardiac: regular rate and rhythm [ ] Gastrointestinal: Abdomen is soft and non tender, no masses, bowel sounds normal. Musculoskeletal: Neck: Neck is supple and non tender. Extremities have full range of motion and are non tender. Skin: No rashes or lesions. [ ] DIFFERENTIAL DIAGNOSIS: After history and physical exam differential diagnosis was considered for incarcerated hernia small bowel obstruction Medical Decision Making Data Points Result Diagram: 03/17/18 1526 03/17/18 1526 Laboratory Hematology Test 03/17/18 14:58 03/17/18 15:26 Urine Color Yellow Urine Clarity Slightly-cloudy Urine pH 6.0 pH (4.8-9.5) Urine Specific [place] 1.015 Urine Protein Negative mg/dL (NEGATIVE) Urine Glucose (UA) Negative mg/dL (NEGATIVE) Urine Ketones Negative mg/dL (NEGATIVE) Urine Blood Small (NEGATIVE) Urine Nitrite Negative (NEGATIVE) Urine Bilirubin Negative (NEGATIVE) Urine Urobilinogen 2.0 mg/dL (0.2-1.9) Urine Leukocyte Esterase Negative (NEGATIVE) Urine RBC 1 /HPF (0-2/HPF) Urine WBC 1 /HPF (0-5/HPF) Urine Squamous Epithelial Cells Many /LPF (</=FEW) Urine Bacteria Few /HPF (NONE-FEW) Urine Mucus None /HPF (NONE-FEW) Red Blood Count 5.48 M/uL (4.17-5.56) Mean Corpuscular Volume 75.0 fL (80.0-96.0) Mean Corpuscular Hemoglobin 24.3 pg (26.0-33.0) Mean Corpuscular Hemoglobin Concent 32.5 g/dL (32.0-36.0) Red Cell Distribution Width 16.6 % (11.5-14.5) Mean Platelet Volume 8.7 fL (7.2-11.1) Neutrophils (%) (Auto) 53.6 % (39.4-72.5) Lymphocytes (%) (Auto) 36.7 % (17.6-49.6) Monocytes (%) (Auto) 7.0 % (4.1-12.4) Eosinophils (%) (Auto) 2.1 % (0.4-6.7) Basophils (%) (Auto) 0.6 % (0.3-1.4) Nucleated RBC Relative Count (auto) 0.1 /100WBC Neutrophils # (Auto) 3.3 K/uL (2.0-7.4) Lymphocytes # (Auto) 2.3 K/uL (1.3-3.6) Monocytes # (Auto) 0.4 K/uL (0.3-1.0) Eosinophils # (Auto) 0.1 K/uL (0.0-0.5) Basophils # (Auto) 0.0 K/uL (0.0-0.1) Nucleated RBC Absolute Count (auto) 0.01 K/uL Peripheral Blood Smear Y/N Prothrombin Time 13.3 seconds (12.0-14.4) Prothromb Time International Ratio 1.01 Activated Partial Thromboplast Time 26 seconds (23-35) Sodium Level 140 mmol/L (137-145) Potassium Level 3.4 mmol/L (3.5-5.0) Chloride Level 107 mmol/L (98-107) Carbon Dioxide Level 21 mmol/L (22-31) Blood Urea Nitrogen 14 mg/dl (7-18) Creatinine 0.90 mg/dl (0.52-1.04) Glomerular Filtration Rate Calc > 60.0 Random Glucose 101 mg/dl (75-110) Calcium Level 8.4 mg/dl (8.4-10.2) Total Bilirubin 0.3 mg/dl (0.2-1.3) Aspartate Amino Transf (AST/SGOT) 15 U/L (0-35) Alanine Aminotransferase (ALT/SGPT) 16 U/L (0-56) Alkaline Phosphatase 68 U/L (0-126) Total Protein 6.6 gm/dl (6.3-8.2) Albumin 3.5 g/dl (3.5-5.0) Lipase 103 U/L (23-300) Serum Alcohol < 10 mg/dl Chemistry Test 03/17/18 14:58 03/17/18 15:26 Urine Color Yellow Urine Clarity Slightly-cloudy Urine pH 6.0 pH (4.8-9.5) Urine Specific [place] 1.015 Urine Protein Negative mg/dL (NEGATIVE) Urine Glucose (UA) Negative mg/dL (NEGATIVE) Urine Ketones Negative mg/dL (NEGATIVE) Urine Blood Small (NEGATIVE) Urine Nitrite Negative (NEGATIVE) Urine Bilirubin Negative (NEGATIVE) Urine Urobilinogen 2.0 mg/dL (0.2-1.9) Urine Leukocyte Esterase Negative (NEGATIVE) Urine RBC 1 /HPF (0-2/HPF) Urine WBC 1 /HPF (0-5/HPF) Urine Squamous Epithelial Cells Many /LPF (</=FEW) Urine Bacteria Few /HPF (NONE-FEW) Urine Mucus None /HPF (NONE-FEW) White Blood Count 6.2 k/uL (4.5-11.0) Red Blood Count 5.48 M/uL (4.17-5.56) Hemoglobin 13.3 g/dL (12.0-16.0) Hematocrit 41.1 % (34.0-47.0) Mean Corpuscular Volume 75.0 fL (80.0-96.0) Mean Corpuscular Hemoglobin 24.3 pg (26.0-33.0) Mean Corpuscular Hemoglobin Concent 32.5 g/dL (32.0-36.0) Red Cell Distribution Width 16.6 % (11.5-14.5) Platelet Count 203 K/uL (150-450) Mean Platelet Volume 8.7 fL (7.2-11.1) Neutrophils (%) (Auto) 53.6 % (39.4-72.5) Lymphocytes (%) (Auto) 36.7 % (17.6-49.6) Monocytes (%) (Auto) 7.0 % (4.1-12.4) Eosinophils (%) (Auto) 2.1 % (0.4-6.7) Basophils (%) (Auto) 0.6 % (0.3-1.4) Nucleated RBC Relative Count (auto) 0.1 /100WBC Neutrophils # (Auto) 3.3 K/uL (2.0-7.4) Lymphocytes # (Auto) 2.3 K/uL (1.3-3.6) Monocytes # (Auto) 0.4 K/uL (0.3-1.0) Eosinophils # (Auto) 0.1 K/uL (0.0-0.5) Basophils # (Auto) 0.0 K/uL (0.0-0.1) Nucleated RBC Absolute Count (auto) 0.01 K/uL Peripheral Blood Smear Y/N Prothrombin Time 13.3 seconds (12.0-14.4) Prothromb Time International Ratio 1.01 Activated Partial Thromboplast Time 26 seconds (23-35) Glomerular Filtration Rate Calc > 60.0 Calcium Level 8.4 mg/dl (8.4-10.2) Total Bilirubin 0.3 mg/dl (0.2-1.3) Aspartate Amino Transf (AST/SGOT) 15 U/L (0-35) Alanine Aminotransferase (ALT/SGPT) 16 U/L (0-56) Alkaline Phosphatase 68 U/L (0-126) Total Protein 6.6 gm/dl (6.3-8.2) Albumin 3.5 g/dl (3.5-5.0) Lipase 103 U/L (23-300) Serum Alcohol < 10 mg/dl Coagulation Test 03/17/18 15:26 Prothrombin Time 13.3 seconds Prothromb Time International Ratio 1.01 Activated Partial Thromboplast Time 26 seconds Toxicology Test 03/17/18 15:26 Serum Alcohol < 10 mg/dl Urinalysis Test 03/17/18 14:58 Urine Color Yellow Urine Clarity Slightly-cloudy Urine pH 6.0 pH (4.8-9.5) Urine Specific [place] 1.015 Urine Protein Negative mg/dL (NEGATIVE) Urine Glucose (UA) Negative mg/dL (NEGATIVE) Urine Ketones Negative mg/dL (NEGATIVE) Urine Blood Small (NEGATIVE) Urine Nitrite Negative (NEGATIVE) Urine Bilirubin Negative (NEGATIVE) Urine Urobilinogen 2.0 mg/dL (0.2-1.9) Urine Leukocyte Esterase Negative (NEGATIVE) Urine RBC 1 /HPF (0-2/HPF) Urine WBC 1 /HPF (0-5/HPF) Urine Squamous Epithelial Cells Many /LPF (</=FEW) Urine Bacteria Few /HPF (NONE-FEW) Urine Mucus None /HPF (NONE-FEW) ED Course/Re-evaluation ED Course Clinical course history of edema comes in with chronic a year-long abdominal discomfort is a follow-up with GI specialist in [address] of the abdomen and pelvis shows no obvious acute pathology labs were all within normal limits diagnosis chronic abdominal pain Decision to Disposition Date: Mar 17, 2018 Decision to Disposition Time: 16:55 Depart Departure Latest Vital Signs Vital Signs Date Time Temp Pulse Resp B/P (MAP) Pulse Ox O2 Delivery O2 Flow Rate FiO2 03/17/18 14:59 97.5 87 16 131/74 93 Room Air Impression: Primary Impression: Nausea & vomiting Additional Impression: Gastritis Condition: Improved Disposition: HOME OR SELF-CARE Referrals: FAVIOLA APPIAH (PCP) 10 Days Patient Instructions: Abdominal Pain (ED) Problem Qualifiers HIRAM PENN MD Mar 17, 2018 15:15
--- NOTE | 2018-03-17 15:20 | EKG ---
FACILITY: [facility] - [place], [place] PATIENT NAME: MAHESH QUISPE : [id number] MR: [id number] V: [id number] EXAM DATE: ORDERING PHYSICIAN: HIRAM EPNN TECHNOLOGIST: CANDY Crowder Reason : Blood Pressure : / mmHG Vent. Rate : 080 BPM Atrial Rate : 080 BPM P-R Int : 134 ms QRS Dur : 090 ms QT Int : 392 ms P-R-T Axes : 037 030 028 degrees QTc Int : 452 ms Normal sinus rhythm Nonspecific T wave abnormality Abnormal ECG When compared with ECG of 10-JAN-2018 01:20, No significant change was found Confirmed by TRENA TSE ([id number]) on 03/18/2018 12:30:17 PM Referred By: Confirmed By:TRENA TSE
[2018-03-17] MEDS ORDERED: IOPAMIDOL 76% 75 ML INFUS BTL 75 ML ONE (15:27)
[2018-03-17 15:42] LABS: PLATELET COUNT, AUTOMATED 203 K/uL (150-450)
[2018-03-17 15:57] LABS: INR 1.01
[2018-03-17 16:30] VITALS: BP 138/73
--- NOTE | 2018-03-17 16:46 | RADIOLOGY IMAGING REPORT ---
FACILITY: [facility] PATIENT NAME: Francheska Anderson : 1965 MR: [id number] V: [id number] EXAM DATE: ORDERING PHYSICIAN: HIRAM PENN TECHNOLOGIST: Location: [facility] Patient: Francheska Anderson : 1965 Visit/Account:[id number] Date of Sevice: 03/17/2018 CT abdomen and pelvis with IV contrast Indication: Abdominal pain Comparison: None available. . Technique: Axial CT images were obtained through the abdomen and pelvis during injection of nonioni c iodinated intravenous contrast. Reformatted coronal and sagittal images were also obtained. One of the following dose optimization techniques was utilized in the performance of this exam: Autom ated exposure control; adjustment of the mA and/or kV according to the patient's size; or use of an i terative reconstruction technique. Specific details can be referenced in the facility's radiology C T exam operational policy. Contrast: 75 ml of Isovue-370 IV contrast. Findings: Lower lung garland: Limited views lower lung field are unremarkable. Liver: No focal parenchymal abnormality of the liver. Biliary: Status post cholecystectomy. The biliary system is unremarkable. Pancreas: Normal appearance. Spleen: Normal appearance. Adrenal glands: Unremarkable. Kidneys / retroperitoneum: No evidence of nephrolithiasis or hydronephrosis. Left kidney does show a 1.2 cm cyst in the anterior aspect. No solid renal lesions. Bowel / peritoneum / mesenteries: Visualized gastrointestinal tract, including the appendix, within n ormal limits. Stomach is unremarkable. No free air, free fluid, fluid collections or areas of inflammation. Small umbilical hernia containin g fat. Lymph node assessment: No pathologic adenopathy identified. Pelvic structures: Status post hysterectomy. The remaining pelvic structures visualized within nor mal limits. Vessels: No significant atherosclerotic calcifications seen throughout a nonaneurysmal abdominal aort a and branches. Musculoskeletal / Body wall: No acute or aggressive osseous abnormality. Postsurgical change the lumb ar spine without sequelae. IMPRESSION: 1. No acute intra-abdominal abnormality Report Dictated By: Fab Kennedy at 03/17/2018 4:36 PM Report E-Signed By: Fab Kennedy at 03/17/2018 4:42 PM WSN:[id number]
--- NOTE | 2018-03-17 17:05 | RADIOLOGY IMAGING REPORT ---
FACILITY: [facility] PATIENT NAME: Francheska Anderson : 1965 MR: [id number] V: [id number] EXAM DATE: ORDERING PHYSICIAN: HIRAM PENN TECHNOLOGIST: Location: [facility] Patient: Francheska Anderson : 1965 Visit/Account:[id number] Date of Sevice: 03/17/2018 2 VIEWS CHEST INDICATION: Chest pain. COMPARISON: 01/10/2018. FINDINGS: Cardiomediastinal silhouette and pulmonary vessels within normal limits. There is no focal infiltrate or lobar consolidation. There is no pneumothorax or pleural effusion. No nodule. Upper abdomen is unremarkable. No acute bony abnormality. IMPRESSION: 1. No acute cardiopulmonary process. Report Dictated By: Fab Kennedy at 03/17/2018 4:59 PM Report E-Signed By: Fab Kennedy at 03/17/2018 5:01 PM WSN:[id number]
== END 2018-03-17 17:14 | disposition home or self-care (01) ==
LOC: ER 15:06
DX: K29.70 Gastritis, unspecified, without bleeding (principal); R11.2 Nausea with vomiting, unspecified
CPT/HCPCS: 36415; 71046; 74177; 81001; 83690; 85025; 85610; 85730; 93005; 96361; 96374; 99284; G0480; J2405; J7030; Q9967; 80320; 82040; 82247; 82310; 82374; 82435; 82565; 82947; 84075; 84132; 84155; 84295; 84450; 84460; 84520

== ENCOUNTER → 2018-04-08 | Outpatient (CLI) | payer MEDICARE, MEDICAID ==
[2018-04-08 14:56] LABS: PLATELET COUNT, AUTOMATED 239 K/uL (150-450)
== END ==
LOC: LAB 14:37
PROVIDERS: ATTEND Nurse Practitioner Family
DX: R10.13 Epigastric pain (principal); R07.9 Chest pain, unspecified; R68.81 Early satiety; K21.9 Gastro-esophageal reflux disease without esophagitis; K22.5 Diverticulum of esophagus, acquired; R19.4 Change in bowel habit; E11.9 Type 2 diabetes mellitus without complications; G47.30 Sleep apnea, unspecified
CPT/HCPCS: 36415; 82040; 82150; 82247; 82310; 82374; 82435; 82565; 82947; 83690; 84075; 84132; 84155; 84295; 84450; 84460; 84520; 85025

== ENCOUNTER → 2018-04-21 | Outpatient (CLI) | payer MEDICARE, MEDICAID ==
[~2018-04-21] MED LIST changes: +ACET125T9 PO; +DEXL60CA6 PO
--- NOTE | 2018-04-23 09:06 | RADIOLOGY IMAGING REPORT ---
FACILITY: [facility] [place] PATIENT NAME: MAHESH QUISPE : [id number] MR: [id number] V: [id number] EXAM DATE: [id number] ORDERING PHYSICIAN: PAWEL MARES TECHNOLOGIST: Karlie Wren PROCEDURE:BILATERAL DIAGNOSTIC DIGITAL MAMMOGRAM WITH CAD ASSISTED INTERPRETATION & 3D TOMOSYNTHESIS COMPARISON:Prior mammograms 07/01/16, 04/19/15, 03/28/13. INDICATIONS:history of prior breast cysts. FINDINGS: Mildly heterogeneous fibroglandular tissue is seen throughout the breasts. The parenchymal pattern has remained stable allowing for difference in mammographic technique & patient positioning. There is no evidence of malignant appearing mass, malignant appearing calcifications or other secondary sign of malignancy in either breast. Of note the patient did have abnormalities on her prior outside bilateral breast Ultrasounds therefore bilateral breast Ultrasound recommended for further evaluation. DIAGNOSTIC CATEGORY 0--INCOMPLETE: NEED ADDITIONAL IMAGING EVALUATION. RECOMMENDATIONS: ULTRASOUND: BILATERAL BREASTS. IMPRESSION: BIRADS 0: Incomplete. Bilateral breast Ultrasound recommended as described above. Dictated by: Genna Powell M.D. on 04/21/2018 at 17:29 Transcribed by: ROSSANA on 04/22/2018 at 8:23 Approved by: Genna Powell M.D. on 04/23/2018 at 9:06 [facility]
== END ==
LOC: MAMO 00:48
PROVIDERS: ATTEND Nurse Practitioner Family
DX: R92.8 Other abnormal and inconclusive findings on diagnostic imaging of breast (principal)
CPT/HCPCS: 77062; 77066

== ENCOUNTER 2018-04-29 09:57 | Outpatient (RCR) | payer MEDICARE, MEDICAID ==
[~2018-04-29 09:57] MED LIST changes: -ACET125T9 PO; -DEXL60CA6 PO
[2018-04-29] MEDS ORDERED: DEXL60CA6 PO (10:26)
[2018-04-29] MEDS ORDERED: ACET125T9 PO (10:26)
[2018-04-29] MEDS ORDERED: RANI-366 PO (10:26)
--- NOTE | 2018-05-04 08:32 | RADIOLOGY IMAGING REPORT ---
FACILITY: [facility] - [place] PATIENT NAME: MAHESH QUISPE : [id number] MR: [id number] V: [id number] EXAM DATE: [id number] ORDERING PHYSICIAN: PAWEL MARES TECHNOLOGIST: Saira Ferreira RDMS PROCEDURE:US BILATERAL BREAST COMPARISON:Prior breast Ultrasounds 07/01/16. INDICATIONS:follow-up prior outside Ultrasounds of the breast. FINDINGS: Multiple cysts are identified throughout the Left breast the largest measuring approximately 1cm in diameter in the 5 o'clock position. No solid mass is demonstrated. In the 9 o'clock position of the Right breast approximately 2cm from the nipple there is a 1.8 x 0.7 x 1.2cm solid slightly lobular echogenic nodule. Additional cysts identified in the Right breast. DIAGNOSTIC CATEGORY 3--PROBABLY BENIGN FINDING. RECOMMENDATIONS: SIX MONTH FOLLOW-UP ULTRASOUND: RIGHT BREAST. IMPRESSION: BIRADS 3: Probably benign finding. There are bilateral breast cysts. A 6 month follow-up Right breast Ultrasound is recommended to evaluate the echogenic nodule in the 9 o'clock position unless clinical findings warrant more immediate attention. Dictated by: Genna Powell M.D. on 05/03/2018 at 14:33 Transcribed by: ROSSANA on 05/03/2018 at 14:55 Approved by: Genna Powell M.D. on 05/04/2018 at 8:31 [facility]
== END 2018-04-29 18:00 | disposition home or self-care (01) ==
LOC: RAD 09:57
PROVIDERS: ATTEND Nurse Practitioner Family
DX: N60.11 Diffuse cystic mastopathy of right breast (principal); N60.12 Diffuse cystic mastopathy of left breast
CPT/HCPCS: 76641

== ENCOUNTER 2018-05-06 00:58 | Day surgery (SDC) | payer MEDICARE, MEDICAID ==
[2018-05-06] VITALS (7 sets, daily range): BP systolic 84–113; BP diastolic 33–79
[~2018-05-06] VITALS: Ht 170.2 cm; Wt 96.6 kg
[~2018-05-06 00:58] MED LIST changes: +ACET125T9 PO; +DEXL60CA6 PO
[2018-05-06] MEDS ORDERED: LIDOCAINE/SOD BICARB 8.4% SYR ID ONE (12:25)
[2018-05-06] MEDS ORDERED: NORMOSOL R SOLN(*) 1000 ML BAG 1,000 ML IV PRN (12:25)
== END 2018-05-06 15:20 | disposition home or self-care (01) ==
LOC: OR 00:58
PROVIDERS: ATTEND Internal Medicine Gastroenterology
DX: K22.5 Diverticulum of esophagus, acquired (principal); K44.9 Diaphragmatic hernia without obstruction or gangrene; K20.9 Esophagitis, unspecified; K29.70 Gastritis, unspecified, without bleeding; K64.9 Unspecified hemorrhoids; K63.5 Polyp of colon
CPT/HCPCS: 00811; 43239; 43249; 45380; 45385; 88305; 88313; 88344; C1726

== ENCOUNTER → 2018-06-01 | Outpatient (CLI) | payer MEDICARE, MEDICAID ==
--- NOTE | 2018-06-01 14:31 | RADIOLOGY IMAGING REPORT ---
FACILITY: [facility] - [place] PATIENT NAME: Francheska Anderson : 1965 MR: [id number] V: [id number] EXAM DATE: ORDERING PHYSICIAN: PAWEL MARES TECHNOLOGIST: Location: [facility] Patient: Francheska Anderson : 1965 Visit/Account:[id number] Date of Sevice: 06/01/2018 WRIST RIGHT MIN 3 VIEW, HAND COMPLETE RIGHT Indication: Follow-up fracture Comparison: 09/27/2017 Findings: Since the prior examination, patient has had removal of the fixation plate and screws. There is a he aled distal radius fracture with small osteophyte noted along the ulnar aspect of the distal radius. Small bony lucencies from screw placement are present. The hand is intact. Mild degenerative changes seen involving the interphalangeal joints. There is no focal soft tissue abnormality. IMPRESSION: 1. Healed wrist fracture of the distal radius with interval hardware removal, no acute abnormality n oted Report Dictated By: Kaleb Dial at 06/01/2018 2:24 PM Report E-Signed By: Kaleb Dial at 06/01/2018 2:28 PM WSN:[id number]
--- NOTE | 2018-06-01 14:31 | RADIOLOGY IMAGING REPORT ---
FACILITY: [facility] [place] PATIENT NAME: Francheska Anderson : 1965 MR: [id number] V: [id number] EXAM DATE: ORDERING PHYSICIAN: PAWEL MARES TECHNOLOGIST: Location: [facility] Patient: Francheska Anderson : 1965 Visit/Account:[id number] Date of Sevice: 06/01/2018 WRIST RIGHT MIN 3 VIEW, HAND COMPLETE RIGHT Indication: Follow-up fracture Comparison: 09/27/2017 Findings: Since the prior examination, patient has had removal of the fixation plate and screws. There is a he aled distal radius fracture with small osteophyte noted along the ulnar aspect of the distal radius. Small bony lucencies from screw placement are present. The hand is intact. Mild degenerative changes seen involving the interphalangeal joints. There is no focal soft tissue abnormality. IMPRESSION: 1. Healed wrist fracture of the distal radius with interval hardware removal, no acute abnormality n oted Report Dictated By: Kaleb Dial at 06/01/2018 2:24 PM Report E-Signed By: Kaleb Dial at 06/01/2018 2:28 PM WSN:[id number]
== END ==
LOC: RAD 12:19
PROVIDERS: ATTEND Nurse Practitioner Family
DX: M79.641 Pain in right hand (principal)

== ENCOUNTER 2018-06-14 10:23 | Emergency (ER) | payer MEDICARE, MEDICAID ==
[2018-06-14] MEDS ORDERED: ASPIRIN 81 MG CHEW PO ONE (11:05)
[2018-06-14 11:15] LABS: PLATELET COUNT, AUTOMATED 233 K/uL (150-450)
--- NOTE | 2018-06-14 11:20 | EKG ---
FACILITY: [facility] PATIENT NAME: MAHESH QUISPE : [id number] MR: [id number] V: [id number] EXAM DATE: ORDERING PHYSICIAN: KENJI SCHMIDT TECHNOLOGIST: MELANIA Test Reason : CHEST TIGHTNESS Blood Pressure : / mmHG Vent. Rate : 072 BPM Atrial Rate : 072 BPM P-R Int : 132 ms QRS Dur : 088 ms QT Int : 400 ms P-R-T Axes : 076 050 054 degrees QTc Int : 438 ms Sinus rhythm Nonspecific T wave flattening Abnormal ECG Confirmed by DEBBIE MERCADO ([id number]) on 06/14/2018 12:12:25 PM Referred By: VICTORIANO SCHMIDT Confirmed By:DEBBIE MERCADO
[2018-06-14] MEDS ORDERED: ONDANSETRON 4 MG/2 ML VIAL IVP ONE (11:40)
--- NOTE | 2018-06-14 11:41 | RADIOLOGY IMAGING REPORT ---
FACILITY: [facility] - [place] PATIENT NAME: Francheska Anderson : 1965 MR: [id number] V: [id number] EXAM DATE: ORDERING PHYSICIAN: KENJI SCHMIDT TECHNOLOGIST: Location: [facility] [place] Patient: Francheska Anderson : 1965 Visit/Account:[id number] Date of Sevice: 06/14/2018 Exam type: CHEST PA AND LAT History: Tachycardia, chest pain, asthma Comparison: March 17, 2018. Findings: The lungs are free of acute effusions, infiltrates or edema. There is no evidence of a pneumothorax or pneumomediastinum. Cardiac silhouette is normal in size. There are surgical clips in the right u pper quadrant of abdomen. IMPRESSION: 1. No acute cardiac pulmonary process is seen Report Dictated By: Genna Powell MD at 06/14/2018 11:35 AM Report E-Signed By: Genna Poewll MD at 06/14/2018 11:37 AM WSN:[email or web address]
--- NOTE | 2018-06-14 13:44 | ER Report ---
History and Physical Time Seen By MD: 10:31 Hx. of Stated Complaint: pressure in chest with sob, nausea and dizziness, started over weekend HPI/ROS CHIEF COMPLAINT: Chest pain. HISTORY OF PRESENT ILLNESS: Pt has had intermittent cp since thursday; lasts minutes at a time; usually starts while standing though not typically with exertion; usu relieved by rest. Begins l substernal in same area as prior pain that she relates to hiatal hernia, but this is radiating to l neck and shoulders. Currently /, has occured x 1 today for 5 min, at worst 05/02. + mild sob, mild nausea, no vomiting, fevers. No leg swelling REVIEW OF SYSTEMS: Constitutional: No fever, no chills. Eyes: No discharge. ENT: No sore throat. Respiratory: As above. Cardiac: As above. Gastrointestinal: epigastric pain as source of radiating pain Genitourinary: No hematuria. Musculoskeletal: No back pain. Skin: No rashes. Neurological: No headache. Remainder of the 14 system rev: Yes Allergies: Coded Allergies: metronidazole (Verified Allergy, Unknown, vomiting, 04/29/18) sulfamethoxazole (Verified Allergy, Unknown, hives, 04/29/18) trimethoprim (Verified Allergy, Unknown, hives, 04/29/18) Home Meds Active Scripts Omeprazole (OMEPRAZOLE) 40 Mg Capsule., 40 MG PO QDAY, #90 CAP 3 Refills Prov:LISA BRADFORD JR, MD 03/11/18 Ondansetron (ZOFRAN ODT) 4 Mg Tab.rapdis, 4 MG PO Q6H Y for NAUSEA/VOMITING, # 20 TAB.TIERRA Prov:HIGINIO COBB 11/24/17 Promethazine Hcl (PROMETHAZINE HCL) 25 Mg Tablet, 25 MG PO Q8H Y for NAUSEA, # 20 TAB 0 Refills Prov:KENJI GREENBERG MD 11/07/17 Reported Medications Dexlansoprazole (DEXILANT) 60 Mg Cap., 60 MG PO QAM 04/29/18 Acetazolamide (ACETAZOLAMIDE) 125 Mg Tablet, 125 MG PO BID 04/29/18 Ranitidine Hcl (ZANTAC) 150 Mg Tablet, 150 MG PO BID, TAB 04/29/18 Montelukast Sodium (SINGULAIR) 10 Mg Tablet, 1 TAB PO QDAY, TAB 2/28/18 Topiramate (TOPIRAMATE) 25 Mg Tablet, 25 MG PO QHS 08/20/17 Topiramate (TOPIRAMATE) 50 Mg Tablet, 50 MG PO QAM 08/20/17 Gabapentin (GABAPENTIN) 300 Mg Capsule, 300 MG PO TID, CAPSULE 08/20/17 Paroxetine Hcl (PAXIL) 20 Mg Tablet, 40 MG PO QDAY, TAB 08/20/17 Meclizine Hcl (MECLIZINE HCL) 25 Mg Tablet, 25 MG PO TID Y for DIZZINESS 08/20/17 Discontinued Reported Medications Ropinirole Hcl (ROPINIROLE HCL) 1 Mg Tablet, 1 MG PO QHS 08/20/17 Discontinued Scripts Promethazine Hcl (PROMETHAZINE HCL) 25 Mg Tablet, 25 MG PO Q8H Y for NAUSEA/ VOMITING, #20 TAB 0 Refills Prov:CHRIS MERRITT MD 01/10/18 Past Medical/Surgical History includes hchol though not currently treated, fam hx of mild mi in father Reviewed Nurses Notes: Yes Old Medical Records Reviewed: Yes Hx Smoking: Yes Smoking Status: Never Smoker Hx Substance Use Disorder: No Hx Alcohol Use: No Constitutional Vital Sign - Last 24 Hours 06/14/18 06/14/18 06/14/18 06/14/18 10:23 10:27 10:28 10:38 Temp 98.5 Pulse ??? 70 74 Resp 16 25 B/P (MAP) 117/83 (94) 117/83 Pulse Ox 95 94 O2 Delivery Room Air 06/14/18 06/14/18 06/14/18 06/14/18 10:39 11:08 11:23 11:38 Pulse 70 ??? 70 Resp 14 11 B/P (MAP) 119/75 (90) Pulse Ox 93 06/14/18 06/14/18 06/14/18 06/14/18 11:53 11:58 12:13 12:28 Pulse 72 71 70 70 Resp 15 15 14 15 Pulse Ox 92 93 92 93 06/14/18 06/14/18 06/14/18 06/14/18 12:43 12:48 12:58 13:00 Pulse 69 68 Resp 10 13 B/P (MAP) 111/67 (82) 108/71 (83) Pulse Ox 95 93 7/2306/14/18 06/14/18 06/14/18 13:13 13:28 13:30 13:43 Pulse 70 69 66 Resp 13 16 19 B/P (MAP) 107/68 (81) Pulse Ox 94 94 95 06/14/18 06/14/18 06/14/18 06/14/18 13:48 14:00 14:03 14:18 Pulse 69 66 63 Resp 14 10 8 B/P (MAP) 114/76 (89) Pulse Ox 94 95 92 06/14/18 06/14/18 06/14/18 06/14/18 14:30 14:33 14:48 15:00 Pulse 65 65 Resp 14 15 B/P (MAP) 109/73 (85) ???/??? (1665) Pulse Ox 90 92 06/14/18 06/14/18 06/14/18 06/14/18 15:03 15:18 15:23 15:30 Pulse 65 66 65 Resp 13 11 12 B/P (MAP) ???/??? (1665) Pulse Ox 93 92 93 06/14/18 06/14/18 15:36 15:38 Pulse ??? B/P (MAP) 109/74 (86) Physical Exam General Appearance: The patient is alert, has no immediate need for airway protection and no signs of toxicity. [ ] Eyes: Pupils equal and round no pallor or injection. ENT, Mouth: Mucous membranes are moist. Respiratory: There are no retractions, lungs are clear to auscultation. Cardiovascular: Regular rate and rhythm. L substernal chest wall ttp reproduces pain Gastrointestinal: epigastric abd ttp without peritoneal sgs reproduces pt's symptoms Neurological: alert, oriented, nad Skin: Warm and dry, no rashes. Musculoskeletal: Neck is supple non tender. Extremities are nontender, nonswollen and have full range of motion. DIFFERENTIAL DIAGNOSIS: After history and physical exam differential diagnosis was considered for chest pain including but not limited to myocardial ischemia, pericarditis pulmonary embolus, chest wall pain, pleural inflammation and pulmonary infectious causes. Medical Decision Making Data Points Result Diagram: 06/14/18 1106 06/14/18 1106 Laboratory Hematology Test 06/14/18 11:06 06/14/18 14:35 Red Blood Count 5.45 M/uL (4.17-5.56) Mean Corpuscular Volume 75.0 fL (80.0-96.0) Mean Corpuscular Hemoglobin 24.3 pg (26.0-33.0) Mean Corpuscular Hemoglobin Concent 32.4 g/dL (32.0-36.0) Red Cell Distribution Width 17.8 % (11.5-14.5) Mean Platelet Volume 7.8 fL (7.2-11.1) Neutrophils (%) (Auto) 66.8 % (39.4-72.5) Lymphocytes (%) (Auto) 25.4 % (17.6-49.6) Monocytes (%) (Auto) 6.0 % (4.1-12.4) Eosinophils (%) (Auto) 0.8 % (0.4-6.7) Basophils (%) (Auto) 1.0 % (0.3-1.4) Nucleated RBC Relative Count (auto) 0.0 /100WBC Neutrophils # (Auto) 4.0 K/uL (2.0-7.4) Lymphocytes # (Auto) 1.5 K/uL (1.3-3.6) Monocytes # (Auto) 0.4 K/uL (0.3-1.0) Eosinophils # (Auto) 0.0 K/uL (0.0-0.5) Basophils # (Auto) 0.1 K/uL (0.0-0.1) Nucleated RBC Absolute Count (auto) 0.00 K/uL Sodium Level 140 mmol/L (137-145) Potassium Level 3.7 mmol/L (3.5-5.0) Chloride Level 108 mmol/L (98-107) Carbon Dioxide Level 22 mmol/L (22-31) Blood Urea Nitrogen 13 mg/dl (7-18) Creatinine 1.00 mg/dl (0.52-1.04) Glomerular Filtration Rate Calc 58.2 Random Glucose 99 mg/dl (75-110) Calcium Level 9.1 mg/dl (8.4-10.2) Total Bilirubin 0.5 mg/dl (0.2-1.3) Aspartate Amino Transf (AST/SGOT) 15 U/L (0-35) Alanine Aminotransferase (ALT/SGPT) 15 U/L (0-56) Alkaline Phosphatase 82 U/L (0-126) B-Type Natriuretic Peptide 5 pg/ml (0-100) Total Protein 7.0 g/dl (6.3-8.2) Albumin 3.8 g/dl (3.5-5.0) Troponin I < 0.012 ng/ml Chemistry Test 06/14/18 11:06 06/14/18 14:35 White Blood Count 6.0 k/uL (4.5-11.0) Red Blood Count 5.45 M/uL (4.17-5.56) Hemoglobin 13.3 g/dL (12.0-16.0) Hematocrit 40.9 % (34.0-47.0) Mean Corpuscular Volume 75.0 fL (80.0-96.0) Mean Corpuscular Hemoglobin 24.3 pg (26.0-33.0) Mean Corpuscular Hemoglobin Concent 32.4 g/dL (32.0-36.0) Red Cell Distribution Width 17.8 % (11.5-14.5) Platelet Count 233 K/uL (150-450) Mean Platelet Volume 7.8 fL (7.2-11.1) Neutrophils (%) (Auto) 66.8 % (39.4-72.5) Lymphocytes (%) (Auto) 25.4 % (17.6-49.6) Monocytes (%) (Auto) 6.0 % (4.1-12.4) Eosinophils (%) (Auto) 0.8 % (0.4-6.7) Basophils (%) (Auto) 1.0 % (0.3-1.4) Nucleated RBC Relative Count (auto) 0.0 /100WBC Neutrophils # (Auto) 4.0 K/uL (2.0-7.4) Lymphocytes # (Auto) 1.5 K/uL (1.3-3.6) Monocytes # (Auto) 0.4 K/uL (0.3-1.0) Eosinophils # (Auto) 0.0 K/uL (0.0-0.5) Basophils # (Auto) 0.1 K/uL (0.0-0.1) Nucleated RBC Absolute Count (auto) 0.00 K/uL Glomerular Filtration Rate Calc 58.2 Calcium Level 9.1 mg/dl (8.4-10.2) Total Bilirubin 0.5 mg/dl (0.2-1.3) Aspartate Amino Transf (AST/SGOT) 15 U/L (0-35) Alanine Aminotransferase (ALT/SGPT) 15 U/L (0-56) Alkaline Phosphatase 82 U/L (0-126) B-Type Natriuretic Peptide 5 pg/ml (0-100) Total Protein 7.0 g/dl (6.3-8.2) Albumin 3.8 g/dl (3.5-5.0) Troponin I < 0.012 ng/ml EKG/Imaging EKG Interpretation 12 lead EKG: Rhythm: normal sinus rhythm [place]: normal QRS: normal ST segments: flattened t waves v2-[address] elevations or depressions Monitor Interpretation: Normal Sinus Rhythm Imaging X-ray: chest was obtained. I viewed the images myself on the PACS system. My interpretation of the images is: nacpd. The radiologist interpretation had no clinically significant variation from this interpretation. ED Course/Re-evaluation ED Course pt remains generally pain free and comfortable throughout ed stay. HEART score: History: 0 (not exertional, similar to prior pain related to hiatal hernia, EKG 1 Age 1 Risk factor 1 HEART score = 3; I discussed with pt options for admission v d/c with very close f/u and stress testing as she was last stress tested 2 yrs ago; pt elected to d/c and will f/u for stress testing Considered but doubt other emergent etiologies of pain as above; at this point, unlikely emergent etiology of pain, however, have not ruled out anginal pain; will f/u for rpt stress testing. Re-evaluation pt comfortable on reasessment without return of pain. Decision to Disposition Date: Jun 14, 2018 Decision to Disposition Time: 15:10 Depart Departure Latest Vital Signs Vital Signs Date Time Temp Pulse Resp B/P (MAP) Pulse Ox O2 Delivery O2 Flow Rate FiO2 06/14/18 15:38 ??? 06/14/18 15:36 109/74 (86) 06/14/18 15:23 12 93 06/14/18 10:28 98.5 Room Air Impression: Primary Impression: Chest pain Additional Impression: Epigastric abdominal pain Condition: Improved Referrals: FAVIOLA APPIAH (PCP) Patient Instructions: Cardiac Stress Test (DC), Chest Pain (ED) Additional Instructions: As we discussed, it is very important that you follow up with your primary doctor this week to have stres test scheduled to further evaluate your heart. Please return immediately for increasing pain, or any concerning symptoms Problem Qualifiers Primary Impression: Chest pain Chest pain type: unspecified Qualified Codes: R07.9 - Chest pain, unspecified KENJI SCHMIDT MD Jun 14, 2018 13:44
[2018-06-14 15:36] VITALS: BP 109/74
== END 2018-06-14 15:40 | disposition home or self-care (01) ==
LOC: ER 10:32
DX: R07.89 Other chest pain (principal); R13.10 Dysphagia, unspecified
CPT/HCPCS: 36415; 71046; 83880; 84484; 85025; 93005; 96374; 99284; A9270; J2405; 82040; 82247; 82310; 82374; 82435; 82565; 82947; 84075; 84132; 84155; 84295; 84450; 84460; 84520

== ENCOUNTER 2018-06-17 02:03 | Day surgery (SDC) | payer MEDICARE, MEDICAID ==
[~2018-06-17] VITALS: Ht 170.2 cm; Wt 97.5 kg
[2018-06-17 07:16] VITALS: BP 127/78
[2018-06-17] MEDS ORDERED: NORMOSOL R SOLN(*) 1000 ML BAG 1,000 ML IV PRN (08:00)
[2018-06-17] MEDS ORDERED: LIDOCAINE/SOD BICARB 8.4% SYR ID ONE (08:00)
[2018-06-17 09:24] VITALS: BP 81/44
[2018-06-17 09:45] VITALS: BP 90/57
[2018-06-17 10:12] VITALS: BP 114/81
[2018-06-17 10:26] VITALS: BP 107/76
== END 2018-06-17 10:26 | disposition home or self-care (01) ==
LOC: OR 02:03
PROVIDERS: ATTEND Internal Medicine Gastroenterology
DX: K64.8 Other hemorrhoids (principal); K57.30 Diverticulosis of large intestine without perforation or abscess without bleeding
CPT/HCPCS: 88305

== ENCOUNTER 2018-06-26 13:58 | Emergency (ER) | payer MEDICARE, MEDICAID ==
[2018-06-26] MEDS ORDERED: TOPI50TA92 PO (14:12)
[2018-06-26 15:06] LABS: PLATELET COUNT, AUTOMATED 188 K/uL (150-450)
[2018-06-26] MEDS ORDERED: POTASSIUM CHL 20 MEQ TABCR PO STA (15:27)
[2018-06-26 15:32] VITALS: BP 95/72
--- NOTE | 2018-06-26 15:50 | ER Report ---
History and Physical Time Seen By MD: 14:30 Hx. of Stated Complaint: PT REPORTS FATIGUE AND FEELING SHAKY AND WEAK. THINKS HER POTASSIUM LEVELS ARE LOW. PAIN IN BACK AND NECK X2 DAYS HPI/ROS 53-year-old female presents to the emergency department with generalized weakness and feeling as if her potassium was low. She had an episode of hypokalemia at 1. when she lived in [facility], and her potassium was 2.7 at that time. She has not discussed hypokalemia with her primary provider. She states that one point in her lifetime she was on oral potassium replacement. She denies any nausea vomiting or diarrhea. No changes in medication. He denies any focal weakness or other focal neurologic symptoms. She reports that while she does parents weakness she also feels overall just fatigued. Remainder of the 14 system rev: Yes Allergies: Coded Allergies: metronidazole (Verified Allergy, Unknown, vomiting, 04/29/18) sulfamethoxazole (Verified Allergy, Unknown, hives, 04/29/18) trimethoprim (Verified Allergy, Unknown, hives, 04/29/18) Home Meds Active Scripts Omeprazole (OMEPRAZOLE) 40 Mg Capsule., 40 MG PO QDAY, #90 CAP 3 Refills Prov:LISA BRADFORD JR, MD 03/11/18 Ondansetron (ZOFRAN ODT) 4 Mg Tab.rapdis, 4 MG PO Q6H Y for NAUSEA/VOMITING, # 20 TAB.TIERRA Prov:HIGINIO COBB ASSISTANT PROFESSOR SCULPTURE 11/24/17 Promethazine Hcl (PROMETHAZINE HCL) 25 Mg Tablet, 25 MG PO Q8H Y for NAUSEA, # 20 TAB 0 Refills Prov:KENJI GREENBERG MD 11/07/17 Reported Medications Topiramate (TOPIRAMATE) 50 Mg Tablet, 75 MG PO TID 06/26/18 Dexlansoprazole (DEXILANT) 60 Mg Cap.mp, 60 MG PO QAM 04/29/18 Acetazolamide (ACETAZOLAMIDE) 125 Mg Tablet, 125 MG PO BID 04/29/18 Ranitidine Hcl (ZANTAC) 150 Mg Tablet, 150 MG PO BID, TAB 04/29/18 Montelukast Sodium (SINGULAIR) 10 Mg Tablet, 1 TAB PO QDAY, TAB 01/20/18 Gabapentin (GABAPENTIN) 300 Mg Capsule, 300 MG PO TID, CAPSULE 08/20/17 Paroxetine Hcl (PAXIL) 20 Mg Tablet, 40 MG PO QDAY, TAB 08/20/17 Meclizine Hcl (MECLIZINE HCL) 25 Mg Tablet, 25 MG PO TID Y for DIZZINESS 08/20/17 Discontinued Reported Medications Topiramate (TOPIRAMATE) 25 Mg Tablet, 25 MG PO QHS 08/20/17 Topiramate (TOPIRAMATE) 50 Mg Tablet, 50 MG PO QAM 08/20/17 Reviewed Nurses Notes: Yes Old Medical Records Reviewed: Yes Hx Smoking: Yes Smoking Status: Never Smoker Hx Substance Use Disorder: No Hx Alcohol Use: No Constitutional Vital Sign - Last 24 Hours 06/26/18 14:03 Temp 97.7 Pulse 81 Resp 16 B/P (MAP) 124/74 Pulse Ox 94 O2 Delivery Room Air Physical Exam General Appearance: The patient is alert, has no immediate need for airway protection and no current signs of toxicity. Eyes: Pupils equal and round no injection. Respiratory: Chest is non tender, lungs are clear to auscultation. Cardiac: regular rate and rhythm Gastrointestinal: Abdomen is soft and non tender, no masses, bowel sounds normal. Neck: Neck is supple and non tender. Extremities have full range of motion and are non tender. Skin: No rashes or lesions. DIFFERENTIAL DIAGNOSIS: After history and physical exam differential diagnosis was considered for hypokalemia, other electrolyte abnormalities, CVA, infection Medical Decision Making Data Points Result Diagram: 06/26/18 1451 06/26/18 1451 Laboratory Hematology Test 06/26/18 14:51 Red Blood Count 5.07 M/uL (4.17-5.56) Mean Corpuscular Volume 75.5 fL (80.0-96.0) Mean Corpuscular Hemoglobin 24.4 pg (26.0-33.0) Mean Corpuscular Hemoglobin Concent 32.3 g/dL (32.0-36.0) Red Cell Distribution Width 17.4 % (11.5-14.5) Mean Platelet Volume 8.3 fL (7.2-11.1) Neutrophils (%) (Auto) 54.0 % (39.4-72.5) Lymphocytes (%) (Auto) 35.2 % (17.6-49.6) Monocytes (%) (Auto) 8.8 % (4.1-12.4) Eosinophils (%) (Auto) 1.3 % (0.4-6.7) Basophils (%) (Auto) 0.7 % (0.3-1.4) Nucleated RBC Relative Count (auto) 0.0 /100WBC Neutrophils # (Auto) 2.6 K/uL (2.0-7.4) Lymphocytes # (Auto) 1.7 K/uL (1.3-3.6) Monocytes # (Auto) 0.4 K/uL (0.3-1.0) Eosinophils # (Auto) 0.1 K/uL (0.0-0.5) Basophils # (Auto) 0.0 K/uL (0.0-0.1) Nucleated RBC Absolute Count (auto) 0.00 K/uL Sodium Level 141 mmol/L (137-145) Potassium Level 3.2 mmol/L (3.5-5.0) Chloride Level 108 mmol/L (98-107) Carbon Dioxide Level 23 mmol/L (22-31) Blood Urea Nitrogen 11 mg/dl (7-18) Creatinine 1.00 mg/dl (0.52-1.04) Glomerular Filtration Rate Calc 58.2 Random Glucose 106 mg/dl (75-110) Calcium Level 8.7 mg/dl (8.4-10.2) Total Bilirubin 0.3 mg/dl (0.2-1.3) Aspartate Amino Transf (AST/SGOT) 14 U/L (0-35) Alanine Aminotransferase (ALT/SGPT) 11 U/L (0-56) Alkaline Phosphatase 59 U/L (0-126) Total Protein 6.6 g/dl (6.3-8.2) Albumin 3.7 g/dl (3.5-5.0) Chemistry Test 06/26/18 14:51 White Blood Count 4.9 k/uL (4.5-11.0) Red Blood Count 5.07 M/uL (4.17-5.56) Hemoglobin 12.3 g/dL (12.0-16.0) Hematocrit 38.3 % (34.0-47.0) Mean Corpuscular Volume 75.5 fL (80.0-96.0) Mean Corpuscular Hemoglobin 24.4 pg (26.0-33.0) Mean Corpuscular Hemoglobin Concent 32.3 g/dL (32.0-36.0) Red Cell Distribution Width 17.4 % (11.5-14.5) Platelet Count 188 K/uL (150-450) Mean Platelet Volume 8.3 fL (7.2-11.1) Neutrophils (%) (Auto) 54.0 % (39.4-72.5) Lymphocytes (%) (Auto) 35.2 % (17.6-49.6) Monocytes (%) (Auto) 8.8 % (4.1-12.4) Eosinophils (%) (Auto) 1.3 % (0.4-6.7) Basophils (%) (Auto) 0.7 % (0.3-1.4) Nucleated RBC Relative Count (auto) 0.0 /100WBC Neutrophils # (Auto) 2.6 K/uL (2.0-7.4) Lymphocytes # (Auto) 1.7 K/uL (1.3-3.6) Monocytes # (Auto) 0.4 K/uL (0.3-1.0) Eosinophils # (Auto) 0.1 K/uL (0.0-0.5) Basophils # (Auto) 0.0 K/uL (0.0-0.1) Nucleated RBC Absolute Count (auto) 0.00 K/uL Glomerular Filtration Rate Calc 58.2 Calcium Level 8.7 mg/dl (8.4-10.2) Total Bilirubin 0.3 mg/dl (0.2-1.3) Aspartate Amino Transf (AST/SGOT) 14 U/L (0-35) Alanine Aminotransferase (ALT/SGPT) 11 U/L (0-56) Alkaline Phosphatase 59 U/L (0-126) Total Protein 6.6 g/dl (6.3-8.2) Albumin 3.7 g/dl (3.5-5.0) ED Course/Re-evaluation ED Course 53-year-old female presents emergency department with overall fatigue and generalized weakness. She denies any nausea vomiting or diarrhea. No changes in her medications. Her potassium was 3.1 without EKG changes. She was given potassium by mouth replacement. She has a normal neuro exam. I counseled her to follow up with her primary provider next week to discuss being on possible potassium replacement. Decision to Disposition Date: Jun 26, 2018 Decision to Disposition Time: 16:17 Depart Departure Latest Vital Signs Vital Signs Date Time Temp Pulse Resp B/P (MAP) Pulse Ox O2 Delivery O2 Flow Rate FiO2 06/26/18 14:03 97.7 81 16 124/74 94 Room Air Impression: Primary Impression: Weakness Additional Impression: Hypokalemia Condition: Improved Disposition: HOME OR SELF-CARE Referrals: FAVIOLA APPIAH (PCP) Patient Instructions: Hypokalemia (ED) Problem Qualifiers MANSI SCHMIDT MD Jun 26, 2018 15:50
--- NOTE | 2018-06-26 16:23 | EKG ---
FACILITY: [facility] - [place] PATIENT NAME: MAHESH QUISPE : [id number] MR: [id number] V: [id number] EXAM DATE: ORDERING PHYSICIAN: MANSI SCHMIDT TECHNOLOGIST: KAILEY Crowder Reason : NEURO Blood Pressure : / mmHG Vent. Rate : 078 BPM Atrial Rate : 078 BPM P-R Int : 144 ms QRS Dur : 094 ms QT Int : 404 ms P-R-T Axes : 038 030 044 degrees QTc Int : 460 ms Normal sinus rhythm Nonspecific T wave abnormality Prolonged QT Abnormal ECG No significant change was found compared to previous EKG 06.14.18 Confirmed by Timothy Fernandez ([id number]) on 06/26/2018 5:55:42 PM Referred By: BRAYAN Confirmed By:Timothy Barron
== END 2018-06-26 16:31 | disposition home or self-care (01) ==
LOC: ER 14:08
DX: E87.6 Hypokalemia (principal); R53.1 Weakness; Z79.899 Other long term (current) drug therapy
CPT/HCPCS: 36415; 85025; 93005; 99283; A9270; 82040; 82247; 82310; 82374; 82435; 82565; 82947; 84075; 84132; 84155; 84295; 84450; 84460; 84520

== ENCOUNTER → 2018-07-06 | Outpatient (CLI) | payer MEDICARE, MEDICAID | LOC: LAB 15:04 | PROVIDERS: ATTEND Nurse Practitioner Family | DX: E87.6 Hypokalemia (principal); Z79.899 Other long term (current) drug therapy | CPT/HCPCS: 36415; 82040; 82247; 82310; 82374; 82435; 82565; 82947; 84075; 84132; 84155; 84295; 84450; 84460; 84520 ==

== ENCOUNTER → 2018-07-14 | Outpatient (CLI) | payer MEDICARE, MEDICAID ==
[~2018-07-14] MED LIST changes: +REGADENOSON 0.4 MG/5 ML SYR ONE
--- NOTE | 2018-07-14 16:59 | RADIOLOGY IMAGING REPORT ---
[place] [facility] [place] NAME: Francheska Anderson : 1965 MR: [id number] V: [id number] EXAM DATE: ORDERING PHYSICIAN: PAWEL MARES TECHNOLOGIST: Location: [facility] Patient: Francheska Anderson : 1965 Visit/Account:[id number] Date of Sevice: 07/14/2018 EXAMINATION: Single isotope SPECT imaging with regadenoson infusion and gated SPECT imaging. DATE OF EXAMINATION: 07/14/2018. DATE OF INTERPRETATION: 07/14/2018. REQUESTING PHYSICIAN: PAWEL MARES. INDICATION: The patient is a 53-year-old female evaluated for chest pain, prediabetic. PROCEDURE: After informed consent the patient received an intravenous injection of 10.4 mCi of Tc-99 m sestamibi followed at an appropriate time interval by rest imaging. The patient then subsequently received an intravenous infusion of 0.4 mg of regadenoson per protocol without complication. Resting heart rate was 67 bpm with a peak heart rate of 96 bpm. Blood pressure at rest was 98 / 64 and foll owing infusion was 101 / 64. Baseline EKG demonstrates sinus rhythm, possible old inferior AK. Ther e were no EKG changes of ischemia following infusion. Symptoms were nonspecific. The patient then r eceived an intravenous injection of 31.8 mCi of Tc-99m sestamibi followed by stress imaging. RAW DATA: Examination of the summed raw data revealed a adequate quality study. There is diaphragmat ic attenuation present. MYOCARDIAL PERFUSION: The tomographic images demonstrate a moderate sized, moderate intensity defect in the basal, mid, apical inferior wall on rest and stress imaging. The basal defect improves with p nayana imaging but the mid cavitary lesion remains present. Findings are consistent with old inferior M I and diaphragmatic attenuation. No transient ischemic dilation.. GATED IMAGES: The gated images demonstrate normal LVEF greater than 70% no regional wall motion abno rmalities. IMPRESSION: 1. Nondiagnostic pharmacologic stress ECG 2. Abnormal myocardial perfusion scan with old inferior AK. No ischemia. 3. Normal LV systolic function; LVEF greater than 70%. 4. Based on the results of this exam, the patient appears to be at intermediate risk for future cardi ovascular events. Report Dictated By: Ozzie Barron at 07/14/2018 4:50 PM Report E-Signed By: Ozzie Barron at 07/14/2018 4:55 PM WSN:[id number]
--- NOTE | 2018-07-15 15:59 | RT STRESS TEST REPORT ---
FACILITY: [facility] PATIENT NAME: MAHESH QUISPE : [id number] MR: [id number] V: [id number] EXAM DATE: ORDERING PHYSICIAN: TRENA TSE TECHNOLOGIST: Rosaura Acquisition Time: 2018-07-14 09:36:50 Total Exercise Time: 00:01:00 Test Indications: Chest Discomfort Medications: Protocol: LEXISCAN Max HR: 096 BPM 57% of Pred: 168 BPM Max BP: 101/064 mmHG Max Work Load: 1.0 METS Impression No EKG changes to suggest ischemia Nuclear medicine report to follow Confirmed by ABDI DIAL ([id number]) on 07/15/2018 3:59:33 PM Referred By: Overread By: ABDI DIAL
== END ==
LOC: NUC 00:21
PROVIDERS: ATTEND Nurse Practitioner Family
DX: R07.9 Chest pain, unspecified (principal)
CPT/HCPCS: 78452; 93017; A9500; J2785

== ENCOUNTER → 2018-07-23 | Outpatient (CLI) | payer MEDICARE, MEDICAID ==
[~2018-07-23] MED LIST changes: -REGADENOSON 0.4 MG/5 ML SYR ONE
== END ==
LOC: LAB 07:56
PROVIDERS: ATTEND Nurse Practitioner Family
DX: E87.6 Hypokalemia (principal); Z79.899 Other long term (current) drug therapy
CPT/HCPCS: 36415; 82040; 82247; 82310; 82374; 82435; 82565; 82947; 84075; 84132; 84155; 84295; 84450; 84460; 84520

== ENCOUNTER 2018-09-14 09:52 | Emergency (ER) | payer MEDICARE, MEDICAID ==
--- NOTE | 2018-09-14 10:22 | ER Report ---
History and Physical Time Seen By MD: 10:22 Hx. of Stated Complaint: pt tripped over her 's wheel chair and o2 tank. fell on rt arm and chest. pain in left knee, rt arm, abrassions to left knuckles. no sob HPI/ROS 53-year-old female tripped over her 's wheelchair and fell onto her right arm and left knee. She presents with pain in her right forearm that she describes as 2 out of 10 and 1 out of 10 pain in her left knee. She is still able to ambulate. She does not hit her head or lose consciousness. No other complaints Remainder of the 14 system rev: Yes Allergies: Coded Allergies: metronidazole (Verified Allergy, Unknown, vomiting, 09/14/18) sulfamethoxazole (Verified Allergy, Unknown, hives, 09/14/18) trimethoprim (Verified Allergy, Unknown, hives, 09/14/18) Home Meds Active Scripts Omeprazole (OMEPRAZOLE) 40 Mg Capsule., 40 MG PO QDAY, #90 CAP 3 Refills Prov:LISA BRADFORD JR, MD 03/11/18 Ondansetron (ZOFRAN ODT) 4 Mg Tab.rapdis, 4 MG PO Q6H PRN for NAUSEA/VOMITING, #20 TAB.TIERRA Prov:HIGINIO COBB 11/24/17 Promethazine Hcl (PROMETHAZINE HCL) 25 Mg Tablet, 25 MG PO Q8H PRN for NAUSEA, #20 TAB 0 Refills Prov:KENJI GREENBERG MD 11/07/17 Reported Medications Topiramate (TOPIRAMATE) 50 Mg Tablet, 75 MG PO TID 06/26/18 Dexlansoprazole (DEXILANT) 60 Mg Cap., 60 MG PO QAM 04/29/18 Acetazolamide (ACETAZOLAMIDE) 125 Mg Tablet, 125 MG PO BID 04/29/18 Ranitidine Hcl (ZANTAC) 150 Mg Tablet, 150 MG PO BID, TAB 04/29/18 Montelukast Sodium (SINGULAIR) 10 Mg Tablet, 1 TAB PO QDAY, TAB 01/20/18 Gabapentin (GABAPENTIN) 300 Mg Capsule, 300 MG PO TID, CAPSULE 08/20/17 Paroxetine Hcl (PAXIL) 20 Mg Tablet, 40 MG PO QDAY, TAB 08/20/17 Meclizine Hcl (MECLIZINE HCL) 25 Mg Tablet, 25 MG PO TID PRN for DIZZINESS 08/20/17 Reviewed Nurses Notes: Yes Old Medical Records Reviewed: Yes Hx Smoking: Yes Smoking Status: Never Smoker Hx Substance Use Disorder: No Hx Alcohol Use: No Constitutional Vital Sign - Last 24 Hours 09/14/18 09:59 Temp 97.4 Pulse 82 Resp 16 B/P (MAP) 111/84 Pulse Ox 90 O2 Delivery Room Air Physical Exam General Appearance: The patient is alert, has no immediate need for airway protection and no current signs of toxicity. Eyes: Pupils equal and round no injection. Respiratory: Chest is non tender, lungs are clear to auscultation. Cardiac: regular rate and rhythm Gastrointestinal: Abdomen is soft and non tender, no masses, bowel sounds normal. Musculoskeletal: TTP of the right forearm and wrist Neck: Neck is supple and non tender. Extremities have full range of motion. Mild TTP in the left knee Skin: Abrasions to right forearm and left knee Medical Decision Making EKG/Imaging Imaging X-ray: right forearm and left knee was obtained. I viewed the images myself on the PACS system. My interpretation of the images is: no acute fractures or dislocations. The radiologist interpretation had no clinically significant variation from this interpretation. ED Course/Re-evaluation ED Course Head trauma. No fractures or dislocations. [place] abrasions that were washed and dressed. Decision to Disposition Date: Sep 14, 2018 Decision to Disposition Time: 12:46 Depart Departure Latest Vital Signs Vital Signs Date Time Temp Pulse Resp B/P (MAP) Pulse Ox O2 Delivery O2 Flow Rate FiO2 09/14/18 09:59 97.4 82 16 111/84 90 Room Air Impression: Primary Impression: Contusion Condition: Improved Disposition: HOME OR SELF-CARE Referrals: FAVIOLA APPIAH (PCP) Patient Instructions: Contusion in Adults (ED) Problem Qualifiers Primary Impression: Contusion Encounter type: initial encounter Contusion area: forearm Laterality: right Qualified Codes: S50.11XA - Contusion of right forearm, initial encounter MANSI SCHMIDT MD Sep 14, 2018 10:22
--- NOTE | 2018-09-14 11:48 | RADIOLOGY IMAGING REPORT ---
FACILITY: [facility] - [place] PATIENT NAME: Francheska Anderson : 1965 MR: [id number] V: [id number] EXAM DATE: ORDERING PHYSICIAN: MANSI SCHMIDT TECHNOLOGIST: Location: [facility] Patient: Francheska Anderson : 1965 Visit/Account:[id number] Date of Sevice: 09/14/2018 Exam type: KNEE 3 VIEW LEFT History: Fall with left knee pain Comparison: None. Findings: There is mild narrowing of the medial compartment of the left knee likely degenerative in nature. Th ere is no evidence of acute fracture dislocation. There is a small cortical protuberance projecting along the medial aspect of the left tibial metaphysis possibly a tiny incidental osteochondroma IMPRESSION: 1. No evidence of acute fracture-dislocation involving the left knee Tiny bony protuberance projects along the medial aspect of the proximal metaphysis left tibia, possib ly an incidental osteochondroma Report Dictated By: Genna Powell MD at 09/14/2018 11:39 AM Report E-Signed By: Genna Powell MD at 09/14/2018 11:42 AM WSN:[email or web address]
--- NOTE | 2018-09-14 11:49 | RADIOLOGY IMAGING REPORT ---
FACILITY: [facility] - [place] PATIENT NAME: Francheska Anderson : 1965 MR: [id number] V: [id number] EXAM DATE: ORDERING PHYSICIAN: MANSI SCHMIDT TECHNOLOGIST: Location: [facility] [place] Patient: Francheska Anderson : 1965 Visit/Account:[id number] Date of Sevice: 09/14/2018 Exam type: WRIST RIGHT MIN 3 VIEW History: fall on right arm Comparison: June 01, 2018. Findings: Again noted is the old healed fracture through the distal right radius. There is no evidence of acut e fracture or dislocation involving the right wrist IMPRESSION: 1. Old healed fracture through the distal right radius although no evidence of acute fracture disloc ation seen at this time Report Dictated By: Genna Powell MD at 09/14/2018 11:43 AM Report E-Signed By: Genna Powell MD at 09/14/2018 11:45 AM WSN:JOSE M
--- NOTE | 2018-09-14 11:50 | RADIOLOGY IMAGING REPORT ---
[place] [facility] [place] NAME: Francheska Anderson : 1965 MR: [id number] V: [id number] EXAM DATE: ORDERING PHYSICIAN: MANSI SCHMIDT TECHNOLOGIST: Location: [facility] Patient: Francheska Anderson : 1965 Visit/Account:[id number] Date of Sevice: 09/14/2018 Exam type: FOREARM RIGHT History: fall on right arm Comparison: Right wrist June 01, 2018. Findings: Old fracture through the distal right radius again seen. There is no evidence of acute fracture-disl ocation involving the right forearm IMPRESSION: 1. Old healed fracture through the distal right radius although no evidence of acute fracture-disloc ation involving the right forearm Report Dictated By: Genna Powell MD at 09/14/2018 11:45 AM Report E-Signed By: Genna Powell MD at 09/14/2018 11:46 AM WSN:[email or web address]
[2018-09-14 12:30] VITALS: BP 108/71
== END 2018-09-14 12:58 | disposition home or self-care (01) ==
LOC: ER 10:31
DX: S50.11XA Contusion of right forearm, initial encounter (principal)
CPT/HCPCS: 99284; L3908

== ENCOUNTER 2018-09-28 10:54 | Emergency (ER) | payer MEDICARE, MEDICAID ==
--- NOTE | 2018-09-28 11:04 | ER Report ---
History and Physical Time Seen By MD: 11:02 HPI/ROS CHIEF COMPLAINT: Left nasal pain and sinus pain HISTORY OF PRESENT ILLNESS: This is a 53-year-old female who presents to the emergency department for nasal pain and sinus pain. Patient had a mechanical trip and fall roughly a month ago while at the hospital, got tangled in some oxygen tubing and fell down injuring her left knee and right wrist. According to the previous provider notes, the patient did not hit her head however the patient states today she did hit her face on a "tablet". Patient states that she felt okay after the fall, did not complain of facial or nose pain, however week or so after she began to develop some pain. Patient is here for reevaluation. Patient states she has had some bloody discharge from her nose, only when blowing her nose, no bloody noses. Patient denies fevers or chills. No nausea or vomiting. Patient does have a history of severe seasonal allergies as well as sinus infections. She did see her primary care provider who put her on a nasal spray. No blurred vision. Patient states she does have a "migraine headache". REVIEW OF SYSTEMS: Constitutional: No fever, no chills. Eyes: No discharge. ENT: As above. Cardiovascular: No chest pain, no palpitations. Respiratory: No cough, no shortness of breath. Gastrointestinal: No abdominal pain, no vomiting. Genitourinary: No hematuria. Musculoskeletal: No back pain. Skin: No rashes. Neurological: As above. Allergies: Coded Allergies: metronidazole (Verified Allergy, Unknown, vomiting, 09/28/18) sulfamethoxazole (Verified Allergy, Unknown, hives, 09/28/18) trimethoprim (Verified Allergy, Unknown, hives, 09/28/18) Home Meds Active Scripts Omeprazole (OMEPRAZOLE) 40 Mg Capsule., 40 MG PO QDAY, #90 CAP 3 Refills Prov:LISA BRADFORD JR, MD 03/11/18 Reported Medications Fluticasone Prop 50 Mcg Ns (FLONASE 50 MCG NS) 16 Gm [place].susp, 2 SPRAYS NS QDAY, BOT 09/28/18 Topiramate (TOPIRAMATE) 50 Mg Tablet, 75 MG PO TID 06/26/18 Dexlansoprazole (DEXILANT) 60 Mg Cap.mp, 60 MG PO QAM 04/29/18 Acetazolamide (ACETAZOLAMIDE) 125 Mg Tablet, 125 MG PO BID 04/29/18 Ranitidine Hcl (ZANTAC) 150 Mg Tablet, 150 MG PO BID, TAB 04/29/18 Montelukast Sodium (SINGULAIR) 10 Mg Tablet, 1 TAB PO QDAY, TAB 01/20/18 Gabapentin (GABAPENTIN) 300 Mg Capsule, 300 MG PO TID, CAPSULE 08/20/17 Paroxetine Hcl (PAXIL) 20 Mg Tablet, 40 MG PO QDAY, TAB 08/20/17 Meclizine Hcl (MECLIZINE HCL) 25 Mg Tablet, 25 MG PO TID PRN for DIZZINESS 08/20/17 Discontinued Scripts Ondansetron (ZOFRAN ODT) 4 Mg Tab.rapdis, 4 MG PO Q6H PRN for NAUSEA/VOMITING, #20 TAB.TIERRA Prov:HIGINIO COBB PASTE MIXER LIQUID 11/24/17 Promethazine Hcl (PROMETHAZINE HCL) 25 Mg Tablet, 25 MG PO Q8H PRN for NAUSEA, #20 TAB 0 Refills Prov:KENJI GREENBERG MD 11/07/17 Past Medical/Surgical History The patient has a past medical and surgical history of restless leg syndrome, seizures, migraines, murmur, asthma, GERD, hiatal hernia, urinary tract infections, fibromyalgia, arthritis, osteoporosis, wrist and elbow fracture, diabetes, eczema, depression, anxiety, history of MRSA, polyps and colon, hysterectomy, tubal ligation, multiple orthopedic surgeries. Reviewed Nurses Notes: Yes Hx Smoking: Yes Smoking Status: Never Smoker Hx Substance Use Disorder: No Hx Alcohol Use: No Constitutional Vital Sign - Last 24 Hours 09/28/18 09/28/18 09/28/18 09/28/18 11:03 11:04 11:09 11:14 Temp 97.8 Pulse 85 81 80 Resp 12 B/P (MAP) 118/76 (90) 118/76 119/81 (94) Pulse Ox 91 93 92 O2 Delivery Room Air 09/28/18 09/28/18 09/28/18 09/28/18 11:19 11:24 11:29 11:30 Pulse 82 77 78 B/P (MAP) 110/78 (89) Pulse Ox 91 91 92 09/28/18 09/28/18 09/28/18 09/28/18 11:34 11:39 11:54 11:59 Pulse 77 76 74 74 Pulse Ox 92 93 93 93 09/28/18 09/28/18 09/28/18 12:04 12:30 12:34 Pulse 74 72 B/P (MAP) 114/74 (87) Pulse Ox 92 94 Physical Exam General Appearance: The patient is alert, has no immediate need for airway protection and no signs of toxicity. Eyes: Pupils equal and round no pallor or injection. ENT, Mouth: Mucous membranes are moist. No bleeding from the nose. No septal hematoma. Inflammation and erythema to the inferior turbinates, slightly more on the left than the right. Left TM bulging, pearly peck, landmarks noted. No injection. Right TM pearly peck, landmarks noted, no injection. Respiratory: There are no retractions, lungs are clear to auscultation. Cardiovascular: Regular rate and rhythm, very faint systolic murmur, no clicks or rubs. Gastrointestinal: Abdomen is soft and non tender, no masses, bowel sounds normal. Neurological: Alert and oriented 4. Moving all extremities. Following all commands. No focal neuro deficits. No facial droop. Skin: Warm and dry, no rashes. Musculoskeletal: Neck is supple non tender. Extremities are nontender, nonswollen and have full range of motion. DIFFERENTIAL DIAGNOSIS: After history and physical exam differential diagnosis was considered for headache including but not limited to subarachnoid hemorrhage, migraine headache, tension headache and infectious causes such as meningitis, pharyngitis and sinusitis. Medical Decision Making EKG/Imaging Imaging FACIAL BONES MIN 3 VIEW COMPARISON: None. HISTORY: fall, pain TECHNIQUE: Four views of the facial bones FINDINGS: BONES: No appreciable fracture or lesion. Paranasal sinuses are unremarkable as visualized. No significant asymmetry in the mastoid air cells which appear to be normally pneumatized. Orbital rims are intact. No significant septal deviation. The patient is edentulous. SOFT TISSUES: Negative. No visible soft tissue swelling. OTHER: Negative. IMPRESSION: No acute facial bone fractures. Report Dictated By: Lamont Martin at 09/28/2018 12:26 PM Report E-Signed By: Lamont Maritn at 09/28/2018 12:28 PM WSN:[email or web address] Location: [facility] - [place] Patient: Francheska Anderson : 1965 Visit/Account:[id number] Date of Sevlauryn: 09/28/2018 NASAL BONES Indication: Status post fall 1 month earlier, left-sided facial pain. Comparison: None. Findings: The nasal bones are intact. Soft tissues are normal. IMPRESSION: No evidence of nasal bone fracture. Report Dictated By: Varun Kirby at 09/28/2018 12:16 PM Report E-Signed By: Varun Kirby at 09/28/2018 12:19 PM WSN:[facility] ED Course/Re-evaluation ED Course The patient was admitted to a room. A history and physical were obtained. Differential diagnoses were considered. X-rays of the facial bones and nasal bones were negative for any acute fractures. I did review these results with the patient. I did tell her that this could be secondary to seasonal allergies, I did recommend following up with her primary care provider as well as Dr. Bradford for further evaluation of her sinuses. The patient expressed understanding and was discharged home. Patient had no questions or concerns at this time. She was also given 60 mg IM Toradol. Decision to Disposition Date: Sep 28, 2018 Decision to Disposition Time: 12:43 Depart Departure Latest Vital Signs Vital Signs Date Time Temp Pulse Resp B/P (MAP) Pulse Ox O2 Delivery O2 Flow Rate FiO2 09/28/18 12:34 72 94 09/28/18 12:30 114/74 (87) 09/28/18 11:04 97.8 12 Room Air Impression: Primary Impression: Nasal pain Condition: Improved Disposition: HOME OR SELF-CARE Referrals: PAWEL MARES APRN (PCP) 1 Day LISA BRADFORD JR, MD Patient Instructions: Nasal Contusion (ED) Additional Instructions: There is no evidence of a nasal fracture of facial bone fracture on you X-rays today. The discomfort you are experiencing could be a bruise of the area, or could be secondary to your seasonal allergies. I would recommend following up with your PCP as scheduled tomorrow, one consideration would be changing the nasal spray to something a little stronger. You can try 600-800mg Ibuprofen every 6-8 hours as needed for the pain. You can also try 500-1000mg Tylenol as needed for pain, you can alternate these two every 4 hours if needed. Drink plenty of water. Get plenty of rest. I would recommend following up with Dr. Bradford again for your chronic sinus pain and pressure too. Return to the ED for any other concerns or worsening symptoms. AJ ZAPATA PASTE MIXER LIQUID-BC Sep 28, 2018 11:04
[2018-09-28] MEDS ORDERED: FLUT16SP19 NS (11:10)
--- NOTE | 2018-09-28 12:22 | RADIOLOGY IMAGING REPORT ---
FACILITY: [facility] PATIENT NAME: Francheska Anderson : 1965 MR: [id number] V: [id number] EXAM DATE: ORDERING PHYSICIAN: AJ ZAPATA TECHNOLOGIST: Location: [facility] - [place] Patient: Francheska Anderson : 1965 Visit/Account:[id number] Date of Sevice: 09/28/2018 NASAL BONES Indication: Status post fall 1 month earlier, left-sided facial pain. Comparison: None. Findings: The nasal bones are intact. Soft tissues are normal. IMPRESSION: No evidence of nasal bone fracture. Report Dictated By: Varun Kirby at 09/28/2018 12:16 PM Report E-Signed By: Varun Kirby at 09/28/2018 12:19 PM WSN:[email or web address]
[2018-09-28 12:30] VITALS: BP 114/74
--- NOTE | 2018-09-28 12:32 | RADIOLOGY IMAGING REPORT ---
FACILITY: PATIENT NAME: Francheska Anderson : 1965 MR: [id number] V: [id number] EXAM DATE: ORDERING PHYSICIAN: AJ ZAPATA TECHNOLOGIST: Location: [facility] Patient: Francheska Anderson : 1965 Visit/Account:[id number] Date of Sevice: 09/28/2018 FACIAL BONES MIN 3 VIEW COMPARISON: None. HISTORY: fall, pain TECHNIQUE: Four views of the facial bones FINDINGS: BONES: No appreciable fracture or lesion. Paranasal sinuses are unremarkable as visualized. No sig nificant asymmetry in the mastoid air cells which appear to be normally pneumatized. Orbital rims ar e intact. No significant septal deviation. The patient is edentulous. SOFT TISSUES: Negative. No visible soft tissue swelling. OTHER: Negative. IMPRESSION: No acute facial bone fractures. Report Dictated By: Lamont Martin at 09/28/2018 12:26 PM Report E-Signed By: Lamont Martin at 09/28/2018 12:28 PM WSN:JOSE M
[2018-09-28] MEDS ORDERED: KETOROLAC 60 MG/2 ML VIAL IM ONE (12:40)
== END 2018-09-28 13:12 | disposition home or self-care (01) ==
LOC: ER 11:11
DX: J34.89 Other specified disorders of nose and nasal sinuses (principal)
CPT/HCPCS: 70150; 70160; 96372; 99284; J1885

== ENCOUNTER 2018-10-10 10:36 | Emergency (ER) | payer MEDICARE, MEDICAID ==
[~2018-10-10 10:36] MED LIST changes: +FLUT16SP19 NS
--- NOTE | 2018-10-10 11:02 | ER Report ---
History and Physical Time Seen By MD: 11:02 Hx. of Stated Complaint: PATIENT REPORTS A DULL ACHE IN THE BACK OF HER HEAD. SHE REPORTS TAKING TYLENOL BUT THE PAIN HASN'T GONE AWAY HPI/ROS CHIEF COMPLAINT: Headache HISTORY OF PRESENT ILLNESS: 53-year-old female patient complaining of a headache that started a couple of days ago. Located on the left side, back of head. Patient rates pain 6/10. Occasionally will go to a 10/10 mainly when she is laying down or laying on her left side. Pain is dull and achy with occasional throbbing sensation. Patient has tried ibuprofen and acetaminophen without relief. Patient states she is not dizzy but does state she is "running into delgado". Some nausea. Some vomiting but no vomiting today. States light bothers her. Patient states she has had migraines in the past but this is lasting longer. States nothing really works for her migraines. Patient also states she has had concussions in the past with the last concussion in 2013. REVIEW OF SYSTEMS: Respiratory: No cough, no dyspnea. Cardiovascular: No chest pain, no palpitations. Gastrointestinal: As noted above Musculoskeletal: No back pain, or weakness. Allergies: Coded Allergies: metronidazole (Verified Allergy, Unknown, vomiting, 09/28/18) sulfamethoxazole (Verified Allergy, Unknown, hives, 09/28/18) trimethoprim (Verified Allergy, Unknown, hives, 09/28/18) Home Meds Active Scripts Cyclobenzaprine Hcl (CYCLOBENZAPRINE HCL) 10 Mg Tablet, 10 MG PO TID PRN for MUSCLE SPASMS, #15 TAB Prov:HIGINIO COBB 10/10/18 Ketorolac Tromethamine (KETOROLAC TROMETHAMINE) 10 Mg Tab, 10 MG PO Q6H, #20 TAB Prov:HIGINIO COBB 10/10/18 Omeprazole (OMEPRAZOLE) 40 Mg Capsule., 40 MG PO QDAY, #90 CAP 3 Refills Prov:GERARD BRADFORD JR, MD 03/11/18 Reported Medications Fluticasone Prop 50 Mcg Ns (FLONASE 50 MCG NS) 16 Gm [place].susp, 2 SPRAYS NS QDAY, BOT 09/28/18 Topiramate (TOPIRAMATE) 50 Mg Tablet, 75 MG PO TID 06/26/18 Dexlansoprazole (DEXILANT) 60 Mg Cap.mp, 60 MG PO QAM 04/29/18 Acetazolamide (ACETAZOLAMIDE) 125 Mg Tablet, 125 MG PO BID 04/29/18 Ranitidine Hcl (ZANTAC) 150 Mg Tablet, 150 MG PO BID, TAB 04/29/18 Montelukast Sodium (SINGULAIR) 10 Mg Tablet, 1 TAB PO QDAY, TAB 01/20/18 Gabapentin (GABAPENTIN) 300 Mg Capsule, 300 MG PO TID, CAPSULE 08/20/17 Paroxetine Hcl (PAXIL) 20 Mg Tablet, 40 MG PO QDAY, TAB 08/20/17 Meclizine Hcl (MECLIZINE HCL) 25 Mg Tablet, 25 MG PO TID PRN for DIZZINESS 08/20/17 Past Medical/Surgical History Patient has a past medical history of restless legs, seizures, migraines, heart murmur, asthma, GERD, Hiatal hernia, fibromyalgia, arthritis, eczema, d epression, and osteoporosis. Patient has had a hysterectomy, cholecystectomy, and multiple orthopedic surgeries. Patient has had surgeries to bilateral wrists, bilateral knees, bilateral feet, and back. Patient had eye surgery to her left eye as a child. Hx Smoking: Yes Smoking Status: Never Smoker Hx Substance Use Disorder: No Hx Alcohol Use: No Constitutional Vital Sign - Last 24 Hours 10/10/18 10/10/18 10/10/18 10/10/18 10:36 10:41 10:41 11:00 Temp 97.6 Pulse ??? 79 Resp 20 B/P (MAP) 122/84 122/84 (97) 121/77 (92) Pulse Ox 96 O2 Delivery Room Air 10/10/18 10/10/18 10/10/18 10/10/18 11:06 11:30 11:36 12:00 Pulse 75 68 B/P (MAP) 118/67 (84) 117/76 (90) Pulse Ox 94 93 10/10/18 10/10/18 10/10/18 10/10/18 12:30 13:00 13:05 13:30 Pulse ??? 60 59 B/P (MAP) 121/75 (90) 132/77 (95) 112/71 (85) Pulse Ox 94 99 95 10/10/18 13:35 Pulse 61 Pulse Ox 96 Physical Exam General Appearance: The patient is alert, has no immediate need for airway protection and no current signs of toxicity. Eyes: Pupils equal and round no injection. Left eye nystagmus greater than right. Extraocular movement intact. However with accommodation, right eye would drift to right. When done with left eye covered, right eye would maintain proper tracking. ENT: Tympanic membranes are pearly-aguilar, auditory canals are patent, mucous membranes are moist. Respiratory: Chest is non tender, lungs are clear to auscultation. Cardiac: regular rate and rhythm Gastrointestinal: Abdomen is soft and tender epigastric area, no masses, bowel sounds normal. Musculoskeletal: Neck: Neck is supple and non tender. Extremities have full range of motion and are non tender. Skin: No rashes or lesions. Neuro: Patient alert and oriented x 4. Memory intact. Pupils reactive and equal. Patient can raise eyebrows, smile and move tongue equally. Strength equal bilaterally, Reflexes equal bilaterally. DIFFERENTIAL DIAGNOSIS: After history and physical exam differential diagnosis was considered for CVA, Hemorrhage, Migraine, Muscle tension Medical Decision Making Data Points Result Diagram: 10/10/18 1153 10/10/18 1153 Laboratory Hematology Test 10/10/18 11:53 10/10/18 12:27 Red Blood Count 5.43 M/uL (4.17-5.56) Mean Corpuscular Volume 76.4 fL (80.0-96.0) Mean Corpuscular Hemoglobin 23.9 pg (26.0-33.0) Mean Corpuscular Hemoglobin Concent 31.2 g/dL (32.0-36.0) Red Cell Distribution Width 17.0 % (11.5-14.5) Mean Platelet Volume 8.3 fL (7.2-11.1) Neutrophils (%) (Auto) 61.6 % (39.4-72.5) Lymphocytes (%) (Auto) 28.2 % (17.6-49.6) Monocytes (%) (Auto) 8.1 % (4.1-12.4) Eosinophils (%) (Auto) 1.4 % (0.4-6.7) Basophils (%) (Auto) 0.7 % (0.3-1.4) Nucleated RBC Relative Count (auto) 0.0 /100WBC Neutrophils # (Auto) 3.3 K/uL (2.0-7.4) Lymphocytes # (Auto) 1.5 K/uL (1.3-3.6) Monocytes # (Auto) 0.4 K/uL (0.3-1.0) Eosinophils # (Auto) 0.1 K/uL (0.0-0.5) Basophils # (Auto) 0.0 K/uL (0.0-0.1) Nucleated RBC Absolute Count (auto) 0.00 K/uL Erythrocyte Sedimentation Rate 21 mm/HOUR (0-30) Sodium Level 140 mmol/L (137-145) Potassium Level 3.7 mmol/L (3.5-5.0) Chloride Level 111 mmol/L (98-107) Carbon Dioxide Level 22 mmol/L (22-31) Blood Urea Nitrogen 17 mg/dl (7-18) Creatinine 1.00 mg/dl (0.52-1.04) Glomerular Filtration Rate Calc 58.2 Random Glucose 101 mg/dl (75-110) Calcium Level 9.0 mg/dl (8.4-10.2) Total Bilirubin 0.4 mg/dl (0.2-1.3) Aspartate Amino Transf (AST/SGOT) 14 U/L (0-35) Alanine Aminotransferase (ALT/SGPT) 16 U/L (0-56) Alkaline Phosphatase 71 U/L (0-126) C-Reactive Protein 0.7 mg/dl (<1.0) Total Protein 7.0 g/dl (6.3-8.2) Albumin 3.7 g/dl (3.5-5.0) Urine Color Yellow Urine Clarity Slightly-cloudy Urine pH 6.0 pH (4.8-9.5) Urine Specific [place] 1.024 Urine Protein Negative mg/dL (NEGATIVE) Urine Glucose (UA) Negative mg/dL (NEGATIVE) Urine Ketones Negative mg/dL (NEGATIVE) Urine Blood Negative (NEGATIVE) Urine Nitrite Negative (NEGATIVE) Urine Bilirubin Negative (NEGATIVE) Urine Urobilinogen 4.0 mg/dL (0.2-1.9) Urine Leukocyte Esterase Negative (NEGATIVE) Urine RBC 1 /HPF (0-2/HPF) Urine WBC <1 /HPF (0-5/HPF) Urine Squamous Epithelial Cells Many /LPF (</=FEW) Urine Bacteria Few /HPF (NONE-FEW) Urine Mucus Few /HPF (NONE-FEW) Chemistry Test 10/10/18 11:53 10/10/18 12:27 White Blood Count 5.4 k/uL (4.5-11.0) Red Blood Count 5.43 M/uL (4.17-5.56) Hemoglobin 13.0 g/dL (12.0-16.0) Hematocrit 41.5 % (34.0-47.0) Mean Corpuscular Volume 76.4 fL (80.0-96.0) Mean Corpuscular Hemoglobin 23.9 pg (26.0-33.0) Mean Corpuscular Hemoglobin Concent 31.2 g/dL (32.0-36.0) Red Cell Distribution Width 17.0 % (11.5-14.5) Platelet Count 206 K/uL (150-450) Mean Platelet Volume 8.3 fL (7.2-11.1) Neutrophils (%) (Auto) 61.6 % (39.4-72.5) Lymphocytes (%) (Auto) 28.2 % (17.6-49.6) Monocytes (%) (Auto) 8.1 % (4.1-12.4) Eosinophils (%) (Auto) 1.4 % (0.4-6.7) Basophils (%) (Auto) 0.7 % (0.3-1.4) Nucleated RBC Relative Count (auto) 0.0 /100WBC Neutrophils # (Auto) 3.3 K/uL (2.0-7.4) Lymphocytes # (Auto) 1.5 K/uL (1.3-3.6) Monocytes # (Auto) 0.4 K/uL (0.3-1.0) Eosinophils # (Auto) 0.1 K/uL (0.0-0.5) Basophils # (Auto) 0.0 K/uL (0.0-0.1) Nucleated RBC Absolute Count (auto) 0.00 K/uL Erythrocyte Sedimentation Rate 21 mm/HOUR (0-30) Glomerular Filtration Rate Calc 58.2 Calcium Level 9.0 mg/dl (8.4-10.2) Total Bilirubin 0.4 mg/dl (0.2-1.3) Aspartate Amino Transf (AST/SGOT) 14 U/L (0-35) Alanine Aminotransferase (ALT/SGPT) 16 U/L (0-56) Alkaline Phosphatase 71 U/L (0-126) C-Reactive Protein 0.7 mg/dl (<1.0) Total Protein 7.0 g/dl (6.3-8.2) Albumin 3.7 g/dl (3.5-5.0) Urine Color Yellow Urine Clarity Slightly-cloudy Urine pH 6.0 pH (4.8-9.5) Urine Specific [place] 1.024 Urine Protein Negative mg/dL (NEGATIVE) Urine Glucose (UA) Negative mg/dL (NEGATIVE) Urine Ketones Negative mg/dL (NEGATIVE) Urine Blood Negative (NEGATIVE) Urine Nitrite Negative (NEGATIVE) Urine Bilirubin Negative (NEGATIVE) Urine Urobilinogen 4.0 mg/dL (0.2-1.9) Urine Leukocyte Esterase Negative (NEGATIVE) Urine RBC 1 /HPF (0-2/HPF) Urine WBC <1 /HPF (0-5/HPF) Urine Squamous Epithelial Cells Many /LPF (</=FEW) Urine Bacteria Few /HPF (NONE-FEW) Urine Mucus Few /HPF (NONE-FEW) Urinalysis Test 10/10/18 12:27 Urine Color Yellow Urine Clarity Slightly-cloudy Urine pH 6.0 pH (4.8-9.5) Urine Specific [place] 1.024 Urine Protein Negative mg/dL (NEGATIVE) Urine Glucose (UA) Negative mg/dL (NEGATIVE) Urine Ketones Negative mg/dL (NEGATIVE) Urine Blood Negative (NEGATIVE) Urine Nitrite Negative (NEGATIVE) Urine Bilirubin Negative (NEGATIVE) Urine Urobilinogen 4.0 mg/dL (0.2-1.9) Urine Leukocyte Esterase Negative (NEGATIVE) Urine RBC 1 /HPF (0-2/HPF) Urine WBC <1 /HPF (0-5/HPF) Urine Squamous Epithelial Cells Many /LPF (</=FEW) Urine Bacteria Few /HPF (NONE-FEW) Urine Mucus Few /HPF (NONE-FEW) EKG/Imaging Imaging EXAMINATION: CT head without IV contrast HISTORY: Headache. TECHNIQUE: Axial CT images of the head were obtained from the vertex to the skull base without IV contrast, with coronal and sagittal 2D reconstructed images. One of the following dose optimization techniques was utilized in the performance of this exam: Automated exposure control; adjustment of the mA and/or kV according to the patient's size; or use of an iterative recon struction technique. Specific details can be referenced in the facility's radiology CT exam operational policy. COMPARISON: 01/10/2018. FINDINGS: The intracranial contents are unremarkable. No CT evidence of intracranial hemorrhage, mass lesion, or acute infarct. No midline shift or extra-axial fluid collections. Aguilar-white differentiation is maintained. The calvarium is intact. The visualized paranasal sinuses and mastoid air cells are unopacified. IMPRESSION: Unremarkable noncontrast head CT. Report Dictated By: Gerard Bradford MD at 10/10/2018 12:20 PM Report E-Signed By: Gerard Bradford MD at 10/10/2018 12:22 PM ED Course/Re-evaluation ED Course Patient was taken to her room and placed in a bed. Patient history was taken and physical examination was completed. It was noted on exam the accommodation on right eye drifted. As the patient hsa no dizziness I believe that this is likely a chronic feature. Nystagmus bilaterally was noted with the left eye being more significant than the right eye. IV was started in left AC and one liter NS was given. CMP, CBC, ESR, CRP were drawn and were not significant. CT scan was done and found to be no acute processes. Toradol and Norflex were given IV. Patient reports her pain decreased from a 6/10 to a 2/10. Discussed with patient to follow up with her primary care physician. Patient given order for oral Toradol and Flexeril. Patient discharged to home. Decision to Disposition Date: Oct 10, 2018 Decision to Disposition Time: 13:34 Depart Departure Latest Vital Signs Vital Signs Date Time Temp Pulse Resp B/P (MAP) Pulse Ox O2 Delivery O2 Flow Rate FiO2 10/10/18 13:35 61 96 10/10/18 13:30 112/71 (85) 10/10/18 10:41 97.6 20 Room Air Impression: Primary Impression: Headache Additional Impression: Neck muscle spasm Condition: Improved Disposition: HOME OR SELF-CARE Referrals: PAWEL MARES APRN (PCP) New Scripts Cyclobenzaprine Hcl (CYCLOBENZAPRINE HCL) 10 Mg Tablet 10 MG PO TID PRN for MUSCLE SPASMS, #15 TAB Prov: HIGINIO COBB 10/10/18 Ketorolac Tromethamine (KETOROLAC TROMETHAMINE) 10 Mg Tab 10 MG PO Q6H, #20 TAB Prov: HIGINIO COBB 10/10/18 Patient Instructions: Acute Headache (DC) Additional Instructions: Please take medications as directed. If headache worsens, develop nausea/vomiting, or have vision changes please return to the ER. Increase fluid intake. Get plenty of rest. Follow up with your primary care physician in the next week. Problem Qualifiers Primary Impression: Headache Headache type: tension-type Headache chronicity pattern: acute headache Intractability: not intractable Qualified Codes: G44.209 - Tension-type headache, unspecified, not intractable HIGINIO COBB Oct 10, 2018 11:02
[2018-10-10] MEDS ORDERED: NS(*) 0.9% 1000 ML BAG 1,000 ML IV ONE (11:36)
[2018-10-10 12:04] LABS: PLATELET COUNT, AUTOMATED 206 K/uL (150-450)
--- NOTE | 2018-10-10 12:26 | RADIOLOGY IMAGING REPORT ---
FACILITY: [facility] PATIENT NAME: Francheska Anderson : 1965 MR: [id number] V: [id number] EXAM DATE: ORDERING PHYSICIAN: HIGINIO COBB TECHNOLOGIST: Location: [facility] - [place] Patient: Francheska Anderson : 1965 Visit/Account:[id number] Date of Sevice: 10/10/2018 EXAMINATION: CT head without IV contrast HISTORY: Headache. TECHNIQUE: Axial CT images of the head were obtained from the vertex to the skull base without IV c ontrast, with coronal and sagittal 2D reconstructed images. One of the following dose optimization techniques was utilized in the performance of this exam: Autom ated exposure control; adjustment of the mA and/or kV according to the patient's size; or use of an i terative reconstruction technique. Specific details can be referenced in the facility's radiology C T exam operational policy. COMPARISON: 01/10/2018. FINDINGS: The intracranial contents are unremarkable. No CT evidence of intracranial hemorrhage, mass lesion, or acute infarct. No midline shift or extra-axial fluid collections. Aguilar-white differentiation is maintained. The calvarium is intact. The visualized paranasal sinuses and mastoid air cells are unopacified. IMPRESSION: Unremarkable noncontrast head CT. Report Dictated By: Gerard Holguin MD at 10/10/2018 12:20 PM Report E-Signed By: Gerard Holguin MD at 10/10/2018 12:22 PM WSN:[id number]
[2018-10-10] MEDS ORDERED: ORPHENADRINE 60MG/2ML INJ IM ONE (12:45)
[2018-10-10] MEDS ORDERED: KETOROLAC 15 MG/ML VIAL IVP ONE (12:45)
[2018-10-10 13:30] VITALS: BP 112/71
[2018-10-10] MEDS ORDERED: CYCL10TA29 PO (13:35)
[2018-10-10] MEDS ORDERED: KET10 PO (13:35)
== END 2018-10-10 13:47 | disposition home or self-care (01) ==
LOC: ER 11:03
DX: G44.209 Tension-type headache, unspecified, not intractable (principal); M62.838 Other muscle spasm
CPT/HCPCS: 70450; 81001; 85025; 85651; 86140; 96361; 96372; 96374; 99284; J1885; J2360; J7030; 82040; 82247; 82310; 82374; 82435; 82565; 82947; 84075; 84132; 84155; 84295; 84450; 84460; 84520

== ENCOUNTER 2018-10-21 14:22 | Emergency (ER) | payer MEDICARE, MEDICAID ==
[~2018-10-21 14:22] MED LIST changes: +CYCL10TA29 PO; +KET10 PO
--- NOTE | 2018-10-21 14:47 | ER Report ---
History and Physical Time Seen By MD: 14:48 Hx. of Stated Complaint: dizzy HPI/ROS This is a 53-year-old female who presents to the emergency department with nausea since last night. She denies abdominal pain. No chest pain. As had decreased by mouth today due to nausea. No fever chills. No vomiting or diarrhea. No new medications. Allergies: Coded Allergies: metronidazole (Verified Allergy, Unknown, vomiting, 10/21/18) sulfamethoxazole (Verified Allergy, Unknown, hives, 10/21/18) trimethoprim (Verified Allergy, Unknown, hives, 10/21/18) Home Meds Active Scripts Cyclobenzaprine Hcl (CYCLOBENZAPRINE HCL) 10 Mg Tablet, 10 MG PO TID PRN for MUSCLE SPASMS, #15 TAB Prov:HIGINIO COBB [facility] 10/10/18 Ketorolac Tromethamine (KETOROLAC TROMETHAMINE) 10 Mg Tab, 10 MG PO Q6H, #20 TAB Prov:HIGINIO COBB [facility] 10/10/18 Omeprazole (OMEPRAZOLE) 40 Mg Capsule., 40 MG PO QDAY, #90 CAP 3 Refills Prov:LISA BRADFORD JR, MD 03/11/18 Reported Medications Fluticasone Prop 50 Mcg Ns (FLONASE 50 MCG NS) 16 Gm [place].susp, 2 SPRAYS NS QDAY, BOT 09/28/18 Topiramate (TOPIRAMATE) 50 Mg Tablet, 75 MG PO TID 06/26/18 Dexlansoprazole (DEXILANT) 60 Mg Cap.mp, 60 MG PO QAM 04/29/18 Acetazolamide (ACETAZOLAMIDE) 125 Mg Tablet, 125 MG PO BID 04/29/18 Ranitidine Hcl (ZANTAC) 150 Mg Tablet, 150 MG PO BID, TAB 04/29/18 Montelukast Sodium (SINGULAIR) 10 Mg Tablet, 1 TAB PO QDAY, TAB 01/20/18 Gabapentin (GABAPENTIN) 300 Mg Capsule, 300 MG PO TID, CAPSULE 08/20/17 Paroxetine Hcl (PAXIL) 20 Mg Tablet, 40 MG PO QDAY, TAB 08/20/17 Meclizine Hcl (MECLIZINE HCL) 25 Mg Tablet, 25 MG PO TID PRN for DIZZINESS 08/20/17 Reviewed Nurses Notes: Yes Old Medical Records Reviewed: Yes Hx Smoking: Yes Smoking Status: Never Smoker Hx Substance Use Disorder: No Hx Alcohol Use: No Constitutional Vital Sign - Last 24 Hours 10/21/18 10/21/18 10/21/18 10/21/18 14:40 14:40 14:52 15:00 Temp 97.9 Pulse 78 77 Resp 14 B/P (MAP) 124/91 124/91 (102) 112/79 (90) Pulse Ox 91 89 O2 Delivery Room Air 10/21/18 10/21/18 10/21/18 10/21/18 15:22 15:30 15:52 16:00 Pulse 73 67 B/P (MAP) 113/79 (90) 119/76 (90) Pulse Ox 91 95 Physical Exam General Appearance: The patient is alert, has no immediate need for airway pr otection and no current signs of toxicity. Eyes: Pupils equal and round no injection. Respiratory: Chest is non tender, lungs are clear to auscultation. Cardiac: regular rate and rhythm Gastrointestinal: Abdomen is soft and non tender, no masses, bowel sounds normal. Extremities have full range of motion and are non tender. Skin: No rashes or lesions. DIFFERENTIAL DIAGNOSIS: After history and physical exam differential diagnosis was considered for abdominal pain including but not limited to appendicitis, cholecystitis, gastritis and urinary tract infection. Medical Decision Making Data Points Result Diagram: 10/21/18 1536 10/21/18 1536 Laboratory Hematology Test 10/21/18 15:36 10/21/18 16:16 Red Blood Count 5.66 M/uL (4.17-5.56) Mean Corpuscular Volume 75.4 fL (80.0-96.0) Mean Corpuscular Hemoglobin 23.5 pg (26.0-33.0) Mean Corpuscular Hemoglobin Concent 31.1 g/dL (32.0-36.0) Red Cell Distribution Width 17.2 % (11.5-14.5) Mean Platelet Volume 7.9 fL (7.2-11.1) Neutrophils (%) (Auto) 63.6 % (39.4-72.5) Lymphocytes (%) (Auto) 26.5 % (17.6-49.6) Monocytes (%) (Auto) 8.1 % (4.1-12.4) Eosinophils (%) (Auto) 1.4 % (0.4-6.7) Basophils (%) (Auto) 0.4 % (0.3-1.4) Nucleated RBC Relative Count (auto) 0.1 /100WBC Neutrophils # (Auto) 4.9 K/uL (2.0-7.4) Lymphocytes # (Auto) 2.0 K/uL (1.3-3.6) Monocytes # (Auto) 0.6 K/uL (0.3-1.0) Eosinophils # (Auto) 0.1 K/uL (0.0-0.5) Basophils # (Auto) 0.0 K/uL (0.0-0.1) Nucleated RBC Absolute Count (auto) 0.01 K/uL Peripheral Blood Smear No Y/N Sodium Level 139 mmol/L (137-145) Potassium Level 3.9 mmol/L (3.5-5.0) Chloride Level 110 mmol/L (98-107) Carbon Dioxide Level 20 mmol/L (22-31) Blood Urea Nitrogen 12 mg/dl (7-18) Creatinine 1.00 mg/dl (0.52-1.04) Glomerular Filtration Rate Calc 58.2 Random Glucose 102 mg/dl (75-110) Calcium Level 9.2 mg/dl (8.4-10.2) Total Bilirubin 0.3 mg/dl (0.2-1.3) Aspartate Amino Transf (AST/SGOT) 15 U/L (0-35) Alanine Aminotransferase (ALT/SGPT) 10 U/L (0-56) Alkaline Phosphatase 76 U/L (0-126) Total Protein 7.4 g/dl (6.3-8.2) Albumin 4.0 g/dl (3.5-5.0) Urine Color Yellow Urine Clarity Slightly-cloudy Urine pH 5.0 pH (4.8-9.5) Urine Specific [place] 1.014 Urine Protein Negative mg/dL (NEGATIVE) Urine Glucose (UA) Negative mg/dL (NEGATIVE) Urine Ketones Negative mg/dL (NEGATIVE) Urine Blood Negative (NEGATIVE) Urine Nitrite Negative (NEGATIVE) Urine Bilirubin Negative (NEGATIVE) Urine Urobilinogen Negative mg/dL (0.2-1.9) Urine Leukocyte Esterase Trace (NEGATIVE) Urine RBC 1 /HPF (0-2/HPF) Urine WBC 7 /HPF (0-5/HPF) Urine Squamous Epithelial Cells Many /LPF (</=FEW) Urine Bacteria Many /HPF (NONE-FEW) Urine Mucus Few /HPF (NONE-FEW) Chemistry Test 10/21/18 15:36 10/21/18 16:16 White Blood Count 7.7 k/uL (4.5-11.0) Red Blood Count 5.66 M/uL (4.17-5.56) Hemoglobin 13.3 g/dL (12.0-16.0) Hematocrit 42.7 % (34.0-47.0) Mean Corpuscular Volume 75.4 fL (80.0-96.0) Mean Corpuscular Hemoglobin 23.5 pg (26.0-33.0) Mean Corpuscular Hemoglobin Concent 31.1 g/dL (32.0-36.0) Red Cell Distribution Width 17.2 % (11.5-14.5) Platelet Count 229 K/uL (150-450) Mean Platelet Volume 7.9 fL (7.2-11.1) Neutrophils (%) (Auto) 63.6 % (39.4-72.5) Lymphocytes (%) (Auto) 26.5 % (17.6-49.6) Monocytes (%) (Auto) 8.1 % (4.1-12.4) Eosinophils (%) (Auto) 1.4 % (0.4-6.7) Basophils (%) (Auto) 0.4 % (0.3-1.4) Nucleated RBC Relative Count (auto) 0.1 /100WBC Neutrophils # (Auto) 4.9 K/uL (2.0-7.4) Lymphocytes # (Auto) 2.0 K/uL (1.3-3.6) Monocytes # (Auto) 0.6 K/uL (0.3-1.0) Eosinophils # (Auto) 0.1 K/uL (0.0-0.5) Basophils # (Auto) 0.0 K/uL (0.0-0.1) Nucleated RBC Absolute Count (auto) 0.01 K/uL Peripheral Blood Smear No Y/N Glomerular Filtration Rate Calc 58.2 Calcium Level 9.2 mg/dl (8.4-10.2) Total Bilirubin 0.3 mg/dl (0.2-1.3) Aspartate Amino Transf (AST/SGOT) 15 U/L (0-35) Alanine Aminotransferase (ALT/SGPT) 10 U/L (0-56) Alkaline Phosphatase 76 U/L (0-126) Total Protein 7.4 g/dl (6.3-8.2) Albumin 4.0 g/dl (3.5-5.0) Urine Color Yellow Urine Clarity Slightly-cloudy Urine pH 5.0 pH (4.8-9.5) Urine Specific [place] 1.014 Urine Protein Negative mg/dL (NEGATIVE) Urine Glucose (UA) Negative mg/dL (NEGATIVE) Urine Ketones Negative mg/dL (NEGATIVE) Urine Blood Negative (NEGATIVE) Urine Nitrite Negative (NEGATIVE) Urine Bilirubin Negative (NEGATIVE) Urine Urobilinogen Negative mg/dL (0.2-1.9) Urine Leukocyte Esterase Trace (NEGATIVE) Urine RBC 1 /HPF (0-2/HPF) Urine WBC 7 /HPF (0-5/HPF) Urine Squamous Epithelial Cells Many /LPF (</=FEW) Urine Bacteria Many /HPF (NONE-FEW) Urine Mucus Few /HPF (NONE-FEW) Urinalysis Test 10/21/18 16:16 Urine Color Yellow Urine Clarity Slightly-cloudy Urine pH 5.0 pH (4.8-9.5) Urine Specific [place] 1.014 Urine Protein Negative mg/dL (NEGATIVE) Urine Glucose (UA) Negative mg/dL (NEGATIVE) Urine Ketones Negative mg/dL (NEGATIVE) Urine Blood Negative (NEGATIVE) Urine Nitrite Negative (NEGATIVE) Urine Bilirubin Negative (NEGATIVE) Urine Urobilinogen Negative mg/dL (0.2-1.9) Urine Leukocyte Esterase Trace (NEGATIVE) Urine RBC 1 /HPF (0-2/HPF) Urine WBC 7 /HPF (0-5/HPF) Urine Squamous Epithelial Cells Many /LPF (</=FEW) Urine Bacteria Many /HPF (NONE-FEW) Urine Mucus Few /HPF (NONE-FEW) ED Course/Re-evaluation ED Course Presents with nausea without vomiting or diarrhea. Having normal bowel movements. No fever chills. Benign abdominal exam. Labs at baseline. No need for imaging. Patient feels improved after 1 L of normal saline and Zofran. She is able to take by mouth. She will follow-up with her primary care physician. Decision to Disposition Date: Oct 21, 2018 Decision to Disposition Time: 16:51 Depart Departure Latest Vital Signs Vital Signs Date Time Temp Pulse Resp B/P (MAP) Pulse Ox O2 Delivery O2 Flow Rate FiO2 10/21/18 16:00 119/76 (90) 10/21/18 15:52 67 95 10/21/18 14:40 97.9 14 Room Air Impression: Primary Impression: Nausea alone Condition: Improved Disposition: HOME OR SELF-CARE Referrals: PAWEL MARES APRN (PCP) Patient Instructions: Acute Nausea and Vomiting (ED) MANSI SCHMIDT MD Oct 21, 2018 14:47
[2018-10-21] MEDS ORDERED: ONDANSETRON 4 MG/2 ML VIAL IVP ONE (15:20)
[2018-10-21] MEDS ORDERED: NS(*) 0.9% 1000 ML BAG 1,000 ML IV ONE (15:20)
[2018-10-21 15:42] LABS: PLATELET COUNT, AUTOMATED 229 K/uL (150-450)
[2018-10-21 16:56] VITALS: BP 116/73
== END 2018-10-21 17:09 | disposition home or self-care (01) ==
LOC: ER 14:48
DX: R11.0 Nausea (principal)
CPT/HCPCS: 36415; 81001; 85025; 96374; 99283; J2405; J7030; 82040; 82247; 82310; 82374; 82435; 82565; 82947; 84075; 84132; 84155; 84295; 84450; 84460; 84520